=== PATIENT | male | born 1955 | race African-American/Black ===

== ENCOUNTER 2019-08-07 09:28 | Outpatient (CLI) | payer OTHER, SELFPAY ==
[2019-08-07 10:37] LABS: Basophils Percent Auto 0.5 % (0.2-1.2); Eosinophils Absolute Auto 0.2 K/mm3 (0-0.3); Eosinophils Percent Auto 2.6 % (0-4.4); Hematocrit 36.2 % (42.0-52.0); Hemoglobin 12.1 g/dL (14.0-18.0); Immature Granulocyte Absolute 0.02 K/mm3 (0.00-0.031); Immature Granulocyte Percent A 0.3 % (0-0.5); Lymphocytes Absolute Auto 1.58 K/mm3 (0.9-3.2); Lymphocytes Percent Auto 23.7 % (18.3-44.2); Mean Corpuscular HGB Conc 33.4 g/dl (32-36); Mean Corpuscular Hemoglobin 30.6 pg (26-34); Mean Corpuscular Volume 91.4 fl (80-100); Mean Platelet Volume 9.8 fl (7.4-10.4); Monocytes Absolute Auto 0.7 K/mm3 (0.1-0.6); Monocytes Percent Auto 9.8 % (2.6-8.5); Neutrophils Absolute Auto 4.2 K/mm3 (1.3-6.7); Neutrophils Percent Auto 63.1 % (45.5-73.1); Platelet Count Result 247 k/mm3 (150-375); Red Blood Count 3.96 M/mm3 (4.6-6.20); Red Cell Distribution Width 14.3 % (11.5-14.5); White Blood Count 6.7 K/mm3 (4.5-10.0)
[2019-08-07 10:52] LABS: Alanine Aminotransferase 11 U/L (4-50); Albumin Level 4.6 g/dL (3.5-5.1); Alkaline Phosphatase 88 U/L (38-126); Aspartate Amino Transferase 28 U/L (17-59); Bilirubin,Total 0.6 mg/dL (0.2-1.3); Blood Urea Nitrogen 16 mg/dL (9-20); Calcium 9.6 mg/dL (8.4-10.2); Carbon Dioxide 28 mmol/L (22-30); Chloride 106 mmol/L (98-107); Cholesterol 127 mg/dL (0-200); Estimated Glomerular Filt Rate > 60; Glucose 112 mg/dL (75-110); HDL Direct 48 mg/dL; Potassium 3.6 mmol/L (3.4-5.0); Sodium 143 mmol/L (137-145); Triglycerides 31 mg/dL (<150)
[2019-08-07 11:03] LABS: LDL Cholesterol Direct 67 mg/dL
[2019-08-07 14:03] LABS: Hemoglobin A1C 6.7 % (<5.7)
[2019-08-07 15:25] LABS: Carcinoembryonic Antigen 3.4 ng/mL (0.0-3.0)
== END 2019-08-07 09:29 | disposition home or self-care (01) ==
LOC: ANHLAB 09:36
PROVIDERS: PCP Internal Medicine; Visit Provider Nurse Practitioner
DX: C18.9 Malignant neoplasm of colon, unspecified (principal); C78.7 Secondary malignant neoplasm of liver and intrahepatic bile duct; E11.9 Type 2 diabetes mellitus without complications; I10 Essential (primary) hypertension; D64.9 Anemia, unspecified; E78.5 Hyperlipidemia, unspecified
CPT/HCPCS: 36415; 80053; 80061; 82378; 82728; 83036; 85025

== ENCOUNTER 2019-10-08 08:23 | Outpatient (CLI) | payer OTHER, SELFPAY ==
--- NOTE | ~2019-10-08 | CT_ITS ---
EXAMINATION: CT chest abdomen pelvis w con EXAM DATE: 10/08/2019 09:10 INDICATION: Colon cancer, liver metastases. TECHNIQUE: Spiral CT of the chest, abdomen and pelvis was performed following intravenous injection o f 100 mL Omnipaque 350. Axial, coronal and sagittal images were reviewed. Coronal maximum intensity pixel images of chest reviewed. The dose-length product (DLP) for this examination was 421.06 mGy-c m. The exposure was tailored according to patient size (auto mA exposure control), and iterative rec onstruction (ASIR) was used as additional dose reduction technique. Comparison is made to prior exami nation from 04/02/2019. FINDINGS: CHEST: Right-sided Chemo-Port. There is mild emphysema and mild bronchiectasis. There is no focal acu te air space disease. Previously biopsied right thyroid nodule. There is a right-sided portacatheter with tip just above no central pulmonary emboli. The cavoatrial junction. There are no pleural or pe ricardial effusions. Tracheobronchial tree is patent. There is no mediastinal, hilar or axillary lymphadenopathy. There is no pneumothorax. Heart normal in size. There is mild coronary arteria l calcification, arterial sclerosis. ABDOMEN PELVIS: There is a new homogeneous low density liver lesion in the left liver lobe medial seg ment measuring 2.0 x 2.8 cm. There is another new low density region in right liver lobe measuring 2. 5 x 1.5 cm with couple of calcifications or metallic surgical foreign bodies in the right liver lobe, may have slight volume loss. There is again a 1.1 cm flash filling hemangioma. There is a 1.3 cm rig ht adrenal gland nodule unchanged, could be an adenoma. Some subtle nodularity to the left adrenal gl and is unchanged. Pancreas, spleen are unremarkable. Gallbladder is unremarkable. No biliary obstruction. Portal and splenic veins are patent. Kidneys enhance symmetrically. There is no hydronephrosis. Again there i s a 4 mm calcification in the region of the right ureterovesicular junction, could be phlebolith give n absence of hydronephrosis. Difficult to totally exclude distal ureteral stone. Previously seen righ t proximal ureteral stone is no longer identified. The prostate is unremarkable. The bladder is unr emarkable. There is no retroperitoneal or pelvic lymphadenopathy. Patient has had right hemicolectomy, intact anastomosis, no evidence of local recurrence. The stomac h and small bowel are unremarkable. There is expected amount of colonic stool. No free intraperito cas gas. There are no osteoblastic or osteolytic lesions identified. IMPRESSION: 1. 2 new liver lesions as described above. 2. Right pelvic calcification could be phlebolith given absence of hydronephrosis. 3. Mild emphysema and bronchiectasis. Reviewed, dictated and finalized at location A. IMPRESSION: 1. 2 new liver lesions as described above. 2. Right pelvic calcification could be phlebolith given absence of hydronephro sis. 3. Mild emphysema and bronchiectasis.
[2019-10-08 09:02] LABS: Estimated Glomerular Filt Rate > 60
[2019-10-08 10:20] LABS: Basophils Percent Auto 0.5 % (0.2-1.2); Eosinophils Absolute Auto 0.1 K/mm3 (0-0.3); Eosinophils Percent Auto 1.5 % (0-4.4); Hemoglobin 12.8 g/dL (14.0-18.0); Immature Granulocyte Absolute 0.02 K/mm3 (0.00-0.031); Immature Granulocyte Percent A 0.3 % (0-0.5); Lymphocytes Absolute Auto 1.61 K/mm3 (0.9-3.2); Lymphocytes Percent Auto 20.3 % (18.3-44.2); Mean Corpuscular HGB Conc 32.8 g/dl (32-36); Mean Corpuscular Volume 94.4 fl (80-100); Mean Platelet Volume 10.3 fl (7.4-10.4); Monocytes Absolute Auto 0.7 K/mm3 (0.1-0.6); Monocytes Percent Auto 8.9 % (2.6-8.5); Neutrophils Absolute Auto 5.5 K/mm3 (1.3-6.7); Neutrophils Percent Auto 68.5 % (45.5-73.1); Platelet Count Result 273 k/mm3 (150-375); Red Blood Count 4.13 M/mm3 (4.6-6.20); Red Cell Distribution Width 13.9 % (11.5-14.5)
[2019-10-08 10:27] LABS: Alanine Aminotransferase 15 U/L (4-50); Albumin Level 4.6 g/dL (3.5-5.1); Alkaline Phosphatase 84 U/L (38-126); Aspartate Amino Transferase 29 U/L (17-59); Bilirubin,Total 0.7 mg/dL (0.2-1.3); Blood Urea Nitrogen 14 mg/dL (9-20); Calcium 9.3 mg/dL (8.4-10.2); Carbon Dioxide 32 mmol/L (22-30); Chloride 101 mmol/L (98-107); Estimated Glomerular Filt Rate > 60; Glucose 123 mg/dL (75-110); Potassium 3.8 mmol/L (3.4-5.0); Sodium 140 mmol/L (137-145)
[2019-10-08 10:57] LABS: Carcinoembryonic Antigen 3.3 ng/mL (0.0-3.0)
== END 2019-10-08 08:24 | disposition home or self-care (01) ==
PROVIDERS: PCP Internal Medicine; Visit Provider Internal Medicine Hematology & Oncology
DX: C18.9 Malignant neoplasm of colon, unspecified (principal); C78.7 Secondary malignant neoplasm of liver and intrahepatic bile duct; J43.9 Emphysema, unspecified; J47.9 Bronchiectasis, uncomplicated
CPT/HCPCS: 36415; 71260; 74177; 80053; 82378; 85025; Q9967

== ENCOUNTER 2019-10-23 08:55 | Outpatient (CLI) | payer OTHER, SELFPAY ==
--- NOTE | ~2019-10-23 | PE_ITS ---
EXAMINATION: PET skull to mid thigh DATE: 10/23/2019 11:08 INDICATION: Colon cancer metastatic to liver TECHNIQUE: Blood glucose level was 179 mg/dL. 10.255 mCi of 18-fluorodeoxyglucose (18-FDG) was admini stered i.v. Low dose computed tomography (CT) images were acquired from the base of the brain to the proximal thighs for attenuation correction and anatomic localization. Positron emission tomography (P ET) images were acquired in the same distribution beginning 68 minutes after injection. Images includ ing fused PET/CT images were reconstructed in axial, coronal, and sagittal planes. Automated exposure control technique was employed. The dose-length product was 492.54mGy-cm. COMPARISON: CT chest, abdomen and pelvis dated 04/02/2019 FINDINGS: Head/neck: There is symmetric increased activity in the oral cavity, lingual tonsils, parotid glands, submandib ular glands, laryngeal muscles and ocular muscles without CT correlate, likely physiologic. Multinodu lar goiter with enlargement of the right thyroid lobe without abnormal FDG uptake. No pathologically enlarged cervical lymphadenopathy or suspicious foci of increased FDG uptake in the visualized head o r neck. Chest: Right internal jugular central venous port catheter with distal tip at the caudal superior vena cava. No suspicious pulmonary nodules, pneumonia, pulmonary edema or other pulmonary infiltrates. No pleur al effusion. Heart size is normal. Thoracic aorta is normal in caliber. Diffuse mild synovial uptake at the bilateral glenohumeral joints, left greater than right without radiologic correlate. No pathol ogically enlarged thoracic lymphadenopathy or other abnormal FDG avid lesions in the thorax. Abdomen/pelvis/proximal thighs: Decreased FDG uptake associated with subtle poorly defined low-attenuation lesions measure approximat irma 2-3 cm in segment 4A of the liver and an approximately 1.5-2.5 cm lesion with coarse calcificatio ns in segment 6 of the liver likely related to treated metastatic disease. Physiologic renal accumula tion and excretion of FDG activity in the kidneys, bladder and along portions of ureters. The gallbla dder, pancreas, spleen and left adrenal glands are normal. Approximately 12 mm right adrenal nodule w ithout increased FDG uptake which given stability since Postoperative change of right hemicolectomy w ith ileocolic anastomosis in the mid abdomen. There is mild scattered likely physiologic uptake throu ghout the bowels without radiologic correlate. Prostatomegaly. No free intraperitoneal gas or fluid. No other abnormal foci of increased FDG uptake or pathologically enlarged lymphadenopathy in the abdo men, pelvis or proximal thighs. Musculoskeletal: Bones are unremarkable with no suspicious lytic, blastic or FDG avid bone lesions. IMPRESSION: 1. No evident FDG activity associated with a couple low-attenuation hepatic lesions consistent with t reated metastatic disease. No other evident metastatic disease. 2. Goiter. 3. Status post right hemicolectomy. Reviewed, dictated and finalized at location A. IMPRESSION: 1. No evident FDG activity associated with a couple low-attenuation hepatic les ions consistent with treated metastatic disease. No other evident metastatic di sease. 2. Goiter. 3. Status post right hemicolectomy.
[2019-10-23 09:24] LABS: Glucose Point of Care 179 (65-105)
== END 2019-10-23 08:56 | disposition home or self-care (01) ==
LOC: ANHIMG 08:57
PROVIDERS: PCP Internal Medicine; Visit Provider Internal Medicine Hematology & Oncology
DX: C18.9 Malignant neoplasm of colon, unspecified (principal); C78.7 Secondary malignant neoplasm of liver and intrahepatic bile duct; E04.9 Nontoxic goiter, unspecified; Z90.49 Acquired absence of other specified parts of digestive tract
CPT/HCPCS: 78815; A9552

== ENCOUNTER 2020-02-17 08:38 | Outpatient (CLI) | payer OTHER, SELFPAY ==
--- NOTE | ~2020-02-17 | CT_ITS ---
EXAMINATION: CT chest abdomen pelvis w con EXAM DATE: 02/17/2020 09:28 INDICATION: Colon cancer, liver metastases. TECHNIQUE: Spiral CT of the chest, abdomen and pelvis was performed following intravenous injection o f 100 mL Omnipaque 350. Axial, coronal and sagittal images were reviewed. Coronal maximum intensity pixel images of chest reviewed. The dose-length product (DLP) for this examination was 729.29 mGy-c m. The exposure was tailored according to patient size (auto mA exposure control), and iterative rec onstruction (ASIR) was used as additional dose reduction technique. Comparison is made to prior exami nation from 10/23/2019. FINDINGS: CHEST: There is a right-sided Chemo-Port. There is 2.5 cm right thyroid lobe nodule. Possible right s ubmandibular stone. No central pulmonary emboli. The lungs are clear. There are no pleural or peric ardial effusions. Tracheobronchial tree is patent. There is no mediastinal, hilar or axillary lym phadenopathy. There is no pneumothorax. Heart normal in size. ABDOMEN PELVIS: There is interval decrease in size of the previously seen left liver lobe hypodensity , now measuring 2.2 cm greatest dimension (was 2.7 on prior study). Also decrease in size of previous ly seen right liver lobe hypodensity measuring 1.9 cm (previously 2.5 cm). This is most consistent wi th treated metastatic disease. There is right adrenal 1.3 cm nodule unchanged, could be adenoma. Some mild nodularity to the left ad renal gland. Gallbladder is unremarkable. No biliary obstruction. Portal and splenic veins are richardson nt. Kidneys enhance symmetrically. There is no hydronephrosis. There is a 4 mm calcification in the region of right ureterovesicular junction, could be phlebolith given absence of hydronephrosis or ob structive nephrogram. This is unchanged compared to prior study. There is mild prostatomegaly. The b ladder is unremarkable. There is no retroperitoneal or pelvic lymphadenopathy. There is mild scatt ered arteriosclerotic disease. The stomach and small bowel are unremarkable. Status post right hemicolectomy. Expected amount of co lonic stool. No evidence of local recurrence around surgical site. No free intraperitoneal gas. T here are no osteoblastic or osteolytic lesions identified. IMPRESSION: 1. Interval decrease in size of 2 liver hypodensities, most consistent with treated metastatic disea se. 2. Other stable chronic findings. Reviewed, dictated and finalized at location A. IMPRESSION: 1. Interval decrease in size of 2 liver hypodensities, most consistent with tr eated metastatic disease. 2. Other stable chronic findings.
[2020-02-17 09:17] LABS: Estimated Glomerular Filt Rate > 60
[2020-02-17 10:47] LABS: Basophils Percent Auto 0.3 % (0.2-1.2); Eosinophils Absolute Auto 0.2 K/mm3 (0-0.3); Eosinophils Percent Auto 2.5 % (0-4.4); Hematocrit 37.5 % (42.0-52.0); Hemoglobin 12.3 g/dL (14.0-18.0); Immature Granulocyte Absolute 0.03 K/mm3 (0.00-0.031); Immature Granulocyte Percent A 0.5 % (0-0.5); Lymphocytes Absolute Auto 1.58 K/mm3 (0.9-3.2); Lymphocytes Percent Auto 24.3 % (18.3-44.2); Mean Corpuscular HGB Conc 32.8 g/dl (32-36); Mean Corpuscular Hemoglobin 31.3 pg (26-34); Mean Corpuscular Volume 95.4 fl (80-100); Mean Platelet Volume 10.1 fl (7.4-10.4); Monocytes Absolute Auto 0.6 K/mm3 (0.1-0.6); Monocytes Percent Auto 8.8 % (2.6-8.5); Neutrophils Absolute Auto 4.2 K/mm3 (1.3-6.7); Neutrophils Percent Auto 63.6 % (45.5-73.1); Platelet Count Result 271 k/mm3 (150-375); Red Blood Count 3.93 M/mm3 (4.6-6.20); Red Cell Distribution Width 12.8 % (11.5-14.5); White Blood Count 6.5 K/mm3 (4.5-10.0)
[2020-02-17 10:58] LABS: Anion Gap 7 mmol/L (8-16); Blood Urea Nitrogen 11 mg/dL (9-20); Calcium 9.5 mg/dL (8.4-10.2); Carbon Dioxide 30 mmol/L (22-30); Chloride 103 mmol/L (98-107); Estimated Glomerular Filt Rate > 60; Glucose 109 mg/dL (75-110); Potassium 3.8 mmol/L (3.4-5.0); Sodium 140 mmol/L (137-145)
[2020-02-17 11:29] LABS: Carcinoembryonic Antigen 3.7 ng/mL (0.0-3.0)
== END 2020-02-17 08:39 | disposition home or self-care (01) ==
LOC: ANHIMG 08:49
PROVIDERS: Nurse Practitioner; PCP Internal Medicine; Visit Provider Internal Medicine Hematology & Oncology
DX: C78.7 Secondary malignant neoplasm of liver and intrahepatic bile duct (principal); C18.9 Malignant neoplasm of colon, unspecified
CPT/HCPCS: 36415; 71260; 74177; 80048; 82378; 83036; 85025; Q9967

== ENCOUNTER 2020-08-05 08:01 | Outpatient (CLI) | payer OTHER, SELFPAY ==
--- NOTE | ~2020-08-05 | CT_ITS ---
EXAMINATION: CT chest abdomen pelvis w con EXAM DATE: 08/05/2020 08:54 INDICATION: Metastatic colon cancer to liver. TECHNIQUE: Spiral CT of the chest, abdomen and pelvis was performed following intravenous injection o f 100 mL Omnipaque 350. Axial, coronal and sagittal images were reviewed. Coronal maximum intensity pixel images of chest reviewed. The dose-length product (DLP) for this examination was 911.19 mGy-c m. The exposure was tailored according to patient size (auto mA exposure control), and iterative rec onstruction (ASIR) was used as additional dose reduction technique. Comparison is made to prior exami nation from 02/17/2020. FINDINGS: Right submandibular sialolithiasis. Left submandibular gland not identified. Right thyroid lobe nodule or nodules, region measuring about 2 cm. CHEST: There is a right-sided portacatheter. No central pulmonary emboli. There are no pleural or p ericardial effusions. Tracheobronchial tree is patent. There is no mediastinal, hilar or axillary lymphadenopathy. There is no pneumothorax. Heart normal in size. There is mild coronary arteri al calcification, arterial sclerosis. ABDOMEN PELVIS: Slight interval decrease in size of left liver lobe medial segmental hypodense lesion measuring 2.1 x 1.7 cm today versus 2.6 x 1.8 cm in February. Similar slight interval decrease in s ize of right liver lobe hypodensity with some calcifications. Probably response to treatment. No new liver lesions identified. There is a 1.3 cm right adrenal gland lesion unchanged, could be adenoma gi juan stability. Slight nodularity to the left adrenal gland. The pancreas, spleen are unremarkable. G allbladder is unremarkable. No biliary obstruction. Portal and splenic veins are patent. Kidneys enhance symmetrically. There is no hydronephrosis. Ag ain there is 4 mm calcification in region of the right UVJ, but could be phlebolith given absence of hydronephrosis. This is unchanged compared to prior study. There is mild prostatomegaly. Some diffus e bladder wall thickening, could indicate chronic cystitis. Acute cystitis not excludable. There is no retroperitoneal or pelvic lymphadenopathy. Small bilateral inguinal and umbilical fat-containing hernias. Status post right hemicolectomy. Anastomosis site unremarkable. The stomach and small bowel are unre markable. There is expected amount of colonic stool. No free intraperitoneal gas. There are no o steoblastic or osteolytic lesions identified. IMPRESSION: 1. Modest interval decrease in size of liver metastatic disease. 2. Stable right adrenal lesion, could be adenoma. 3. Other surgical, chronic findings also unchanged. Reviewed, dictated and finalized at location A. H OPENER HAND
[2020-08-05 08:42] LABS: Estimated Glomerular Filt Rate > 60
[2020-08-05 09:16] LABS: Hemoglobin A1C 7.1 % (<5.7)
== END 2020-08-05 08:55 | disposition home or self-care (01) ==
PROVIDERS: PCP Nurse Practitioner; Visit Provider Internal Medicine Hematology & Oncology
DX: E11.9 Type 2 diabetes mellitus without complications (principal); Z79.4 Long term (current) use of insulin; C18.9 Malignant neoplasm of colon, unspecified; C78.7 Secondary malignant neoplasm of liver and intrahepatic bile duct; R91.8 Other nonspecific abnormal finding of lung field
CPT/HCPCS: 71260; 74177; 83036; Q9967

== ENCOUNTER 2020-08-12 08:00 | Outpatient (CLI) | payer OTHER, SELFPAY | END 2020-08-12 08:01 | disposition home or self-care (01) | LOC: ANHCOVIDVC 08:00 | PROVIDERS: PCP Nurse Practitioner | DX: Z23 Encounter for immunization (principal) | CPT/HCPCS: 0001A; 91300 ==

== ENCOUNTER 2020-09-02 08:01 | Outpatient (CLI) | payer OTHER, SELFPAY | END 2020-09-02 08:02 | disposition home or self-care (01) | LOC: ANHCOVIDVC 08:01 | PROVIDERS: PCP Nurse Practitioner | DX: Z23 Encounter for immunization (principal) | CPT/HCPCS: 0002A; 91300 ==

== ENCOUNTER 2020-11-29 08:21 | Outpatient (CLI) | payer OTHER, SELFPAY ==
--- NOTE | ~2020-11-29 | CT_ITS ---
EXAMINATION: CT chest abdomen pelvis w con DATE: 11/29/2020 09:13 INDICATION: Metastatic colon cancer TECHNIQUE: Transaxial computed tomographic images of the chest, abdomen, and pelvis were obtained aft er the administration of 100 cc of Omnipaque 350 intravenous contrast. The dose-length product (DLP) was 555.06 mGy-cm. Automated exposure control and iterative reconstruction technique were employed. COMPARISON: 08/05/2020 FINDINGS: CHEST CT: A right internal jugular Port-A-Cath ends with its tip in the distal superior vena cava. Again noted are multiple right thyroid nodules or nodule spanning 2.5 cm. There is a stable 2 mm nodule of the ri ght upper lobe, most consistent with old granulomatous disease. The lungs are free of acute opacities . There is no pleural effusion or pneumothorax. Mild dependent atelectasis is noted. No pathologicall y enlarged thoracic lymph nodes are identified. The heart size is normal. Calcified coronary artery a therosclerosis is noted. ABDOMEN/PELVIS CT: There are unchanged calcifications in liver segment likely related to treated metastatic disease. A 1.9 cm mass in liver segment for a demonstrates slight decrease in size, previously measuring 2.1 c m. A stable peripheral hypervascular lesion in liver segment is consistent with a flash filling he mangioma or focal nodular hyperplasia. The spleen, pancreas, left adrenal gland, and gallbladder are normal. A stable 12 mm right adrenal mass which did not demonstrate FDG uptake on prior PET/CT likely represents an adenoma. There are changes of right hemicolectomy. The kidneys are unremarkable. No pa thologically enlarged abdominal or pelvic lymph nodes are identified. There is no free intraperitonea l gas or evidence of bowel obstruction. There is a 3 mm stone in the urinary bladder near the right u reterovesicular junction. There is mild lumbar spondylosis. IMPRESSION: 1. Slight decrease in size of a left hepatic lobe metastasis and stable right hepatic lobe metastasis . No new metastatic disease. Reviewed, dictated and finalized at location B. IMPRESSION: 1. Slight decrease in size of a left hepatic lobe metastasis and stable right h epatic lobe metastasis. No new metastatic disease.
[2020-11-29 08:58] LABS: Basophils Percent Auto 0.5 % (0.2-1.2); Eosinophils Absolute Auto 0.1 K/mm3 (0-0.3); Eosinophils Percent Auto 2.1 % (0-4.4); Hematocrit 37.6 % (42.0-52.0); Hemoglobin 12.6 g/dL (14.0-18.0); Immature Granulocyte Absolute 0.01 K/mm3 (0.00-0.031); Immature Granulocyte Percent A 0.2 % (0-0.5); Lymphocytes Absolute Auto 1.67 K/mm3 (0.9-3.2); Lymphocytes Percent Auto 26.5 % (18.3-44.2); Mean Corpuscular HGB Conc 33.5 g/dl (32-36); Mean Corpuscular Hemoglobin 30.8 pg (26-34); Mean Corpuscular Volume 91.9 fl (80-100); Mean Platelet Volume 10.1 fl (7.4-10.4); Monocytes Absolute Auto 0.6 K/mm3 (0.1-0.6); Neutrophils Absolute Auto 3.8 K/mm3 (1.3-6.7); Neutrophils Percent Auto 60.7 % (45.5-73.1); Platelet Count Result 227 k/mm3 (150-375); Red Blood Count 4.09 M/mm3 (4.6-6.20); Red Cell Distribution Width 12.7 % (11.5-14.5); White Blood Count 6.3 K/mm3 (4.5-10.0)
[2020-11-29 09:12] LABS: Alanine Aminotransferase 11 U/L (4-50); Albumin Level 4.6 g/dL (3.5-5.1); Alkaline Phosphatase 66 U/L (38-126); Anion Gap 9 mmol/L (8-16); Aspartate Amino Transferase 28 U/L (17-59); Bilirubin,Total 0.4 mg/dL (0.2-1.3); Blood Urea Nitrogen 14 mg/dL (9-20); Calcium 9.6 mg/dL (8.4-10.2); Carbon Dioxide 28 mmol/L (22-30); Chloride 107 mmol/L (98-107); Cholesterol 133 mg/dL (0-200); Estimated Glomerular Filt Rate > 60; Glucose 97 mg/dL (75-110); HDL Direct 41 mg/dL; Potassium 3.2 mmol/L (3.4-5.0); Sodium 144 mmol/L (137-145); Triglycerides 39 mg/dL (<150)
[2020-11-29 09:15] LABS: Platelet Estimate Adequate (Adequate)
[2020-11-29 09:16] LABS: Atypical Lymphocytes Present
[2020-11-29 09:24] LABS: LDL Cholesterol Direct 61 mg/dL
[2020-11-29 09:41] LABS: Prostate Specific Antigen 0.7 ng/mL (< OR = 4.0)
[2020-11-30 07:47] LABS: Estimated Glomerular Filt Rate > 60
== END 2020-11-29 08:22 | disposition home or self-care (01) ==
PROVIDERS: PCP Nurse Practitioner; Referring Provider Nurse Practitioner; Visit Provider Internal Medicine Hematology & Oncology
DX: E11.9 Type 2 diabetes mellitus without complications (principal); Z79.4 Long term (current) use of insulin; Z12.5 Encounter for screening for malignant neoplasm of prostate; C18.9 Malignant neoplasm of colon, unspecified
CPT/HCPCS: 36415; 71260; 74177; 80053; 80061; 84153; 85025; G0103; Q9967

== ENCOUNTER 2021-03-18 08:19 | Outpatient (CLI) | payer OTHER, SELFPAY ==
--- NOTE | ~2021-03-18 | CT_ITS ---
EXAMINATION: CT chest abdomen pelvis w con DATE: 03/18/2021 10:02 INDICATION: Colon cancer metastatic to liver. TECHNIQUE: Computed tomography (CT) of the chest, abdomen, and pelvis was performed with 100 mL Omnip aque 350 intravenous contrast. Automated exposure control and iterative reconstruction technique were employed. The dose-length product was 349.35 mGy-cm. COMPARISON: CT chest, abdomen, and pelvis 11/29/2020, thyroid ultrasound 05/24/2010, CT abdomen and pe lvis 05/31/2018 FINDINGS: CHEST CT: There is no pneumonia or pleural effusion. There is a 2.6 cm nodule in right thyroid lobe, stable fro m 05/24/2010 and likely benign. There is a right internal jugular port with tip at superior cavoatria l junction. The heart size is normal. There are coronary artery calcifications. No pericardial effusi on. There are no pathologically enlarged lymph nodes. There is mild thoracic spondylosis. ABDOMEN/PELVIS CT: There are surgical changes of right hepatic lobe, likely focal resection of a metastasis. There is a chronic 11 mm hyperdense mass in right hepatic lobe, likely benign. There is a 2.2 x 1.5 cm mass of t he junction of segments 4A and 8 of the liver, stable from 11/29/20, consistent with metastatic diseas e. The gallbladder, spleen, pancreas, and left adrenal gland are normal. There is a chronic 13 mm mas s in right adrenal gland, likely an adenoma. The kidneys are normal. There is prominent fat in the in guinal canals that may be hernias. The prostate is mildly enlarged. A 4 mm calcification at the poste rior aspect of the bladder near the right ureterovesicular junction has been present since 05/23/2018 , likely a phlebolith. There are changes of right hemicolectomy. There are no pathologically enlarged lymph nodes. There is no free intraperitoneal fluid. There is mild lumbar spondylosis. IMPRESSION: 1. Stable liver mass, consistent with metastatic disease. Reviewed, dictated and finalized at location A.
[2021-03-18 09:53] LABS: Estimated Glomerular Filt Rate > 60
[2021-03-18 13:42] LABS: Hemoglobin A1C 7.3 % (<5.7)
== END 2021-03-18 08:20 | disposition home or self-care (01) ==
PROVIDERS: PCP Nurse Practitioner; Visit Provider Internal Medicine Hematology & Oncology
DX: E11.9 Type 2 diabetes mellitus without complications (principal); Z79.4 Long term (current) use of insulin; C18.9 Malignant neoplasm of colon, unspecified; C78.7 Secondary malignant neoplasm of liver and intrahepatic bile duct
CPT/HCPCS: 36415; 71260; 74177; 83036; Q9967

== ENCOUNTER 2021-06-30 09:20 | Outpatient (CLI) | payer OTHER, SELFPAY ==
--- NOTE | ~2021-06-30 | CT_ITS ---
EXAMINATION: CT abdomen pelvis w con EXAM DATE: 06/30/2021 10:00 INDICATION: colon cancer metastasized to liver. TECHNIQUE: Spiral CT of the abdomen and pelvis was performed following intravenous injection of 100 m L Omnipaque 350. Axial, coronal and sagittal images of the abdomen and pelvis were reviewed. The do se-length product (DLP) for this examination was 502.16 mGy-cm. The exposure was tailored according to patient size (auto mA exposure control), and iterative reconstruction (ASIR) was used as additiona l dose reduction technique. Comparison is made to prior examination from 03/18/2021. FINDINGS: There is left liver dome hypodensity measuring 2 cm unchanged, smaller lesion in the right liver lobe inferiorly with calcification also stable.. Spleen, pancreas and spleen are unremarkable. There is a nodule in each adrenal gland, measuring 1.1 cm on the left unchanged. Gallbladder is unre markable. No biliary obstruction. Portal and splenic veins are patent. Kidneys enhance symmetrical ly. There is no hydronephrosis. Chronic 4 mm calcification in region of right UVJ, probably phlebol ith given no change or hydronephrosis. Mild prostatomegaly. The bladder is unremarkable. There is n o retroperitoneal or pelvic lymphadenopathy. The stomach and small bowel are unremarkable. Surgical changes from right hemicolectomy. There is exp ected amount of colonic stool. No free intraperitoneal gas. The heart is normal in size. There a re no pericardial or pleural effusions. The lung bases are unremarkable. There are no osteoblastic or osteolytic lesions identified. IMPRESSION: 1. Stable, treated liver metastases. 2. Stable adrenal gland lesions could be adenomas. 3. Right hemicolectomy. Reviewed, dictated and finalized at location A. [employer] PRODUCT DEVELOPMENT MANAGER
[2021-06-30 09:46] LABS: Estimated Glomerular Filt Rate > 60
== END 2021-06-30 09:21 | disposition home or self-care (01) ==
LOC: ANHIMG 09:24
PROVIDERS: PCP Internal Medicine; Visit Provider Internal Medicine Hematology & Oncology
DX: C18.9 Malignant neoplasm of colon, unspecified (principal); C78.7 Secondary malignant neoplasm of liver and intrahepatic bile duct
CPT/HCPCS: 74177; Q9967

== ENCOUNTER 2021-07-14 10:09 | Outpatient (CLI) | payer OTHER, SELFPAY ==
[2021-07-14 11:12] LABS: Hemoglobin A1C 6.8 % (<5.7)
== END 2021-07-14 10:10 | disposition home or self-care (01) ==
LOC: ANHLAB 10:12
PROVIDERS: PCP Internal Medicine; Visit Provider Nurse Practitioner
DX: E11.9 Type 2 diabetes mellitus without complications (principal); Z79.4 Long term (current) use of insulin
CPT/HCPCS: 36415; 83036

== ENCOUNTER 2021-11-08 09:56 | Outpatient (CLI) | payer OTHER, SELFPAY ==
--- NOTE | ~2021-11-08 | CT_ITS ---
EXAMINATION: CT abdomen pelvis wo con DATE: 11/08/2021 10:21 INDICATION: Metastatic colon cancer restaging TECHNIQUE: Computed tomography (CT) of the abdomen and pelvis was performed without intravenous contr ast. Automated exposure control and iterative reconstruction technique were employed. Exam dose: 202 .76 mGy-cm total exam DLP. COMPARISON: 06/30/2021 CT abdomen pelvis with IV contrast material FINDINGS: The lung bases are clear of infiltrate or consolidation or mass lesion. Normal heart size. No pericardial or pleural effusion. Within the limits of this noncontrast examination (due to current severe shortage of iodinated contra st material), the anterior hepatic dome mass and partially calcified posterior right hepatic mass. Re latively stable since 06/30/2021, previously attributed to stable treated liver metastases. No apparen t interval hepatic space-occupying mass lesion is detected. Normal splenic size. The gallbladder is present. No bile duct or pancreatic duct dilatation. No pancreatic mass lesion or calcification. Stable small right adrenal nodule. There is an approximately 4.5 mm calcification near the right ureterovesical junction, which is been present since 1999 8T, without hydroureteronephrosis. This may be within a ureterocele. Phlebolith talavera s been mentioned in the differential diagnosis. There is moderate thickening of the urinary bladder wall. No other urinary tract calculus or hydroureteronephrosis is noted. No renal mass lesion is evident on either side. Normal caliber of the abdominal aorta. No intraperitoneal or retroperitoneal or pelvic mass lesion or adenopathy or ascites is noted otherwise. Status post right partial colectomy for history of colon cancer. No bowel obstruction or intraperiton eal free air. No suspicious osteolytic or osteoblastic lesions are noted. IMPRESSION: Status post right partial colectomy for colon cancer with 2 stable treated liver metasta ses; no interval abnormal finding is noted since 06/30/2021. Reviewed, dictated and finalized at [facility]. Reviewed, dictated and finalized at location A. IMPRESSION: Status post right partial colectomy for colon cancer with 2 stable treated liver metastases; no interval abnormal finding is noted since 2.
== END 2021-11-08 09:57 | disposition home or self-care (01) ==
PROVIDERS: PCP Internal Medicine; Visit Provider Internal Medicine Hematology & Oncology
DX: C18.9 Malignant neoplasm of colon, unspecified (principal); C78.7 Secondary malignant neoplasm of liver and intrahepatic bile duct
CPT/HCPCS: 74176

== ENCOUNTER 2021-12-16 06:57 | Outpatient (CLI) | payer OTHER, SELFPAY ==
[2021-12-16 07:46] LABS: Basophils Percent Auto 0.5 % (0.2-1.2); Eosinophils Absolute Auto 0.4 K/mm3 (0-0.3); Eosinophils Percent Auto 5.9 % (0-4.4); Hematocrit 38.6 % (42.0-52.0); Hemoglobin 12.9 g/dL (14.0-18.0); Immature Granulocyte Absolute 0.01 K/mm3 (0.00-0.031); Immature Granulocyte Percent A 0.2 % (0-0.5); Lymphocytes Absolute Auto 1.45 K/mm3 (0.9-3.2); Lymphocytes Percent Auto 22.7 % (18.3-44.2); Mean Corpuscular HGB Conc 33.4 g/dl (32-36); Mean Corpuscular Hemoglobin 31.2 pg (26-34); Mean Corpuscular Volume 93.2 fl (80-100); Monocytes Absolute Auto 0.6 K/mm3 (0.1-0.6); Monocytes Percent Auto 9.5 % (2.6-8.5); Neutrophils Absolute Auto 3.9 K/mm3 (1.3-6.7); Neutrophils Percent Auto 61.2 % (45.5-73.1); Platelet Count Result 247 k/mm3 (150-375); Red Blood Count 4.14 M/mm3 (4.6-6.20); Red Cell Distribution Width 12.9 % (11.5-14.5); White Blood Count 6.4 K/mm3 (4.5-10.0)
[2021-12-16 13:01] LABS: Alanine Aminotransferase 12 U/L (6-50); Albumin Level 4.5 g/dL (3.5-5.1); Alkaline Phosphatase 64 U/L (38-126); Anion Gap 9 mmol/L (8-16); Aspartate Amino Transferase 26 U/L (17-59); Bilirubin,Total 0.6 mg/dL (0.2-1.3); Blood Urea Nitrogen 12 mg/dL (9-20); Calcium 9.1 mg/dL (8.4-10.2); Carbon Dioxide 30 mmol/L (22-30); Chloride 104 mmol/L (98-107); Cholesterol 146 mg/dL (0-200); Estimated Glomerular Filt Rate > 60; Glucose 126 mg/dL (65-110); HDL Direct 42 mg/dL; Potassium 3.9 mmol/L (3.4-5.0); Sodium 143 mmol/L (137-145); Triglycerides 40 mg/dL (<150)
[2021-12-16 13:13] LABS: LDL Cholesterol Direct 64 mg/dL
== END 2021-12-16 06:58 | disposition home or self-care (01) ==
LOC: ANHLAB 06:58
PROVIDERS: PCP Internal Medicine; Visit Provider Nurse Practitioner
DX: D50.9 Iron deficiency anemia, unspecified (principal); E11.9 Type 2 diabetes mellitus without complications; Z79.4 Long term (current) use of insulin; Z12.5 Encounter for screening for malignant neoplasm of prostate; E78.2 Mixed hyperlipidemia
CPT/HCPCS: 36415; 80053; 80061; 83036; 84153; 85025; G0103

== ENCOUNTER 2022-04-20 12:36 | Outpatient (CLI) | payer OTHER, SELFPAY ==
--- NOTE | ~2022-04-20 | CT_ITS ---
EXAMINATION: CT abdomen pelvis w con DATE: 04/20/2022 13:21 INDICATION: Restaging of metastatic colon cancer TECHNIQUE: Computed tomography (CT) of the abdomen and pelvis was performed with 100 CC Omnipaque 350 intravenous contrast. Automated exposure control and iterative reconstruction technique were employe d. Exam dose: 392.17 mGy-cm total exam DLP. COMPARISON: 11/08/[address] abdomen pelvis 06/30/2021 CT abdomen pelvis with IV contrast material FINDINGS: The lung bases are clear of infiltrate or consolidation or pulmonary mass lesion. Normal he art size. No pericardial or pleural effusion. There are 2 stable hepatic lesions since 06/30/2021. No interval new or enlarging hepatic mass lesion. The gallbladder is present. No pericholecystic fluid or fat stranding or gallbladder wall thickening. No bile duct or pancreatic duct dilatation. No pancreatic mass lesion or calcification. Normal splen ic size. The adrenal glands are stable in appearance since 06/30/2021. Chronic 4 mm calcification in the region of the right ureterovesical junction. Is unchanged in appear ance since 06/30/2021 this may be a calcified phlebolith. This might be a ureterovesical junction or u reteral calculus without associated hydronephrosis. No renal mass lesion or urinary tract calculus or hydroureteronephrosis is noted otherwise. There is moderate diffuse thickening of the urinary bladder wall, stable since 06/30/2021, likely due to prostate enlargement. Normal caliber of the abdominal aorta. No intraperitoneal or retroperitoneal or pelvic mass lesion or adenopathy or ascites is detected. Status post right colectomy. No bowel obstruction or intraperitoneal free air. No suspicious osteolytic or osteoblastic lesions. IMPRESSION: Status post right colectomy for colon cancer; no recurrent mass or new metastatic diseas e or significant change since 06/30/2021 is detected Reviewed, dictated and finalized at [facility]. Reviewed, dictated and finalized at location B. NING SUPPORT SERVICES DIRECTOR IMPRESSION: Status post right colectomy for colon cancer; no recurrent mass or new metastatic disease or significant change since 06/30/2021 is detected
[2022-04-20 13:19] LABS: Estimated Glomerular Filt Rate > 60
== END 2022-04-20 12:37 | disposition home or self-care (01) ==
PROVIDERS: PCP Internal Medicine; Visit Provider Internal Medicine Hematology & Oncology
DX: C18.9 Malignant neoplasm of colon, unspecified (principal); C78.7 Secondary malignant neoplasm of liver and intrahepatic bile duct
CPT/HCPCS: 36592; 74177; 80053; 82378; 85025; Q9967

== ENCOUNTER 2022-06-15 10:21 | Outpatient (CLI) | payer OTHER, SELFPAY ==
[2022-06-15 11:26] LABS: Hemoglobin A1C 6.7 % (<5.7)
== END 2022-06-15 10:22 | disposition home or self-care (01) ==
LOC: ANHLAB 10:23
PROVIDERS: PCP Internal Medicine; Visit Provider Nurse Practitioner
DX: E11.9 Type 2 diabetes mellitus without complications (principal); Z79.4 Long term (current) use of insulin
CPT/HCPCS: 36415; 83036

== ENCOUNTER 2022-07-06 08:24 | Outpatient (CLI) | payer OTHER, SELFPAY ==
[2022-07-11 17:41] LABS: Testosterone Free 82.2 pg/mL (35.0-155.0); Testosterone Total 489 ng/dL (250-1100)
== END 2022-07-06 08:25 | disposition home or self-care (01) ==
LOC: ANHGOSHLAB 08:26
PROVIDERS: PCP Internal Medicine; Visit Provider Clinical Nurse Specialist
DX: N52.9 Male erectile dysfunction, unspecified (principal)
CPT/HCPCS: 36415; 84402; 84403

== ENCOUNTER 2022-08-03 08:02 | Outpatient (CLI) | payer OTHER, SELFPAY ==
--- NOTE | ~2022-08-03 | CT_ITS ---
EXAMINATION: CT abdomen pelvis w con DATE: 08/03/2022 08:25 INDICATION: Colon cancer TECHNIQUE: Computed tomography (CT) of the abdomen and pelvis was performed with 100 cc Omnipaque 350 intravenous contrast. The dose-length product was 242.91 mGy-cm. Automated exposure control and iter ative reconstruction technique were employed. COMPARISON: Comparison to multiple prior studies sequentially, with oldest reviewed study dated 06/30. FINDINGS: Lung bases are unremarkable. Heart size normal. No significant pleural or pericardial effus ion. Fatty infiltration of the liver. There is a hypervascular lesion in the right hepatic lobe, imag e 50, measuring 1.6 cm which appears new or slightly more prominent than on prior study. There is a h ypodense lesion of the left hepatic lobe anteriorly which appears stable, possibly treated metastases . This lesion measures 1.8 x 1.3 cm. There is a subtle hypodense lesion right hepatic lobe posteriorl y with associated calcifications and contour irregularity along the margin of the liver, most likely treated metastases.. The spleen, pancreas, are unremarkable. There is slightly increased size of righ t adrenal nodule measuring 1.5 cm compared with 1.[address] dated 06/30/2021. Small left adrenal nodu le is stable. No significant vascular abnormality. Status post right colectomy. No free air or free f luid. No lymphadenopathy. Nonobstructive bowel gas pattern. Mild lumbar spondylosis. No focal lytic o r blastic lesions are identified. IMPRESSION: 1. Subtle hypervascular lesion present right hepatic lobe, posterior segment which may be new or enla rging area of metastases measuring up to 1.6 cm, image 50. There are additional areas of metastatic d isease in the liver which are stable. 2: Subtle enlargement of right adrenal nodule. Metastases not excluded. Consider correlation with MR I without and with contrast. Reviewed, dictated and finalized at location L. SCAPE SPECIALIST IMPRESSION: 1. Subtle hypervascular lesion present right hepatic lobe, posterior segment wh ich may be new or enlarging area of metastases measuring up to 1.6 cm, image 50 . There are additional areas of metastatic disease in the liver which are stabl e. 2: Subtle enlargement of right adrenal nodule. Metastases not excluded. Consid er correlation with MRI without and with contrast.
[2022-08-03 08:22] LABS: Estimated Glomerular Filt Rate > 60
== END 2022-08-03 08:03 | disposition home or self-care (01) ==
LOC: ANHIMG 08:04
PROVIDERS: PCP Internal Medicine; Visit Provider Internal Medicine Hematology & Oncology
DX: C18.9 Malignant neoplasm of colon, unspecified (principal); C78.7 Secondary malignant neoplasm of liver and intrahepatic bile duct; E27.8 Other specified disorders of adrenal gland
CPT/HCPCS: 74177; Q9967

== ENCOUNTER 2022-08-22 08:06 | Outpatient (CLI) | payer OTHER, SELFPAY ==
--- NOTE | ~2022-08-22 | PE_ITS ---
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 8.627 mCi of 18-fluorodeoxyglucose (18-FDG) was adminis tered i.v. Low dose computed tomography (CT) images were acquired from the base of the brain to the p roximal thighs for attenuation correction and anatomic localization. Positron emission tomography (PE T) images were acquired in the same distribution beginning 55 minutes after injection. Images includi ng fused PET/CT images were reconstructed in axial, coronal, and sagittal planes. Automated exposure control technique was employed. The dose-length product was 522.70mGy-cm. COMPARISON: CT abdomen pelvis dated 08/03/2022 and PET/CT dated 10/23/2019 FINDINGS: Head/neck: There is symmetric increased activity in the oral cavity, laryngeal muscles and ocular muscles withou t CT correlate, likely physiologic. There is uptake at the right submandibular gland. Surgical clips at the head of the likely resected left submandibular gland. Mild retropharyngeal uptake along the le ft longus capitis muscle without radiologic correlate with symmetric appearance on CT imaging which i s likely physiologic. No pathologically enlarged cervical lymphadenopathy or suspicious foci of incre ased FDG uptake in the visualized head or neck. Chest: Right internal jugular central venous port catheter with distal tip at the superior cavoatrial juncti on lungs are clear with no pneumonia, pulmonary edema or other pulmonary infiltrates. No pleural effu jori. Heart size is normal. Atherosclerotic coronary artery calcific lesion. No pericardial effusion. Goiter without increased FDG uptake and with mild intrathoracic extension. No pathologically enlarge d or FDG avid thoracic lymphadenopathy. Abdomen/pelvis/proximal thighs: Physiologic renal accumulation and excretion of FDG activity in the kidneys, bladder and along portio ns of ureters. Again seen are postoperative changes with a few surgical clips along the posterior rig ht hepatic lobe. Normal degree and heterogenous pattern of increased uptake throughout the liver with out radiologic correlate or dominant FDG avid lesion. No abnormal increased or decreased FDG uptake a ssociated with either the hypodense lesion in segment 4A of the liver or the subtle hyperenhancing le jori in segment 6 of the liver which can be seen with contrast enhanced CT dated 02/17/2020. No eviden t FDG uptake associated with a chronic 1.5 cm right adrenal nodule most likely an adenoma. The gallbl adder, pancreas, spleen and left adrenal gland are normal. Postoperative change of prior right hemico lectomy with ileocolic anastomosis in the right abdomen. Moderate focal uptake at the anus and mild u ptake scattered throughout the remainder of the bowels without radiologic correlate, also likely phys iologic. Prostatomegaly. No other abnormal foci of increased FDG uptake or pathologically enlarged ly mphadenopathy in the abdomen, pelvis or proximal thighs. Musculoskeletal: No suspicious lytic, blastic or FDG avid bone lesions. IMPRESSION: 1. No FDG uptake to suggest metastatic disease associated with a low-attenuation lesion in segment 4A of the liver with the site of an enhancing lesion in segment 6, both of which are without significan t interval change in contrast enhanced CT studies dating back to 02/17/2020. No other lesions suspicio us for metastatic disease in the neck, chest, abdomen or pelvis. 2. Status post right hemicolectomy for reported colon cancer. 3. No abnormal FDG uptake associated with a chronic 1.5 cm right adrenal nodule most likely an adenom a. 4. Goiter. Reviewed, dictated and finalized at location A. IMPRESSION: 1. No FDG uptake to sugges
[2022-08-22 08:30] LABS: Glucose Point of Care 120 mg/dl (65-105)
== END 2022-08-22 08:07 | disposition home or self-care (01) ==
PROVIDERS: PCP Internal Medicine; Visit Provider Internal Medicine Hematology & Oncology
DX: C18.9 Malignant neoplasm of colon, unspecified (principal); C78.7 Secondary malignant neoplasm of liver and intrahepatic bile duct; E04.9 Nontoxic goiter, unspecified
CPT/HCPCS: 78815; A9552

== ENCOUNTER 2022-08-24 07:35 | Outpatient (CLI) | payer OTHER, SELFPAY ==
--- NOTE | ~2022-08-24 | MR_ITS ---
EXAMINATION: MR abdomen wo/w con INDICATION: Liver lesion, history of metastatic colon cancer TECHNIQUE: Coronal SSFSE ARC, WATER:coronal LAVA-FLEX, Coronal 2D FIESTA FatSat, Axial SSFSE BH ARC, Axial 3D DualEcho BH, Axial SSFSE-IR, Axial DWI b=500, Axial 2D FIESTA FatSat, pre and dynamic postco ntrast Axial LAVA ARC, postcontrast Coronal In and Opposed phase LAVA FLEX COMPARISON: PET/CT, 08/22/2022; CTs dated 08/03/2022, 04/20/2022, 03/18/2021, and 05/31/2018 CONTRAST: Multihance, 13 cc FINDINGS: Respiratory motion artifact mildly limits dynamic postcontrast sequences. There is a 1.3 cm mildly T1 hypointense, mildly T2 hyperintense lesion in liver segment which demonstrates gradual enhancement on dynamic postcontrast sequences with persistent enhancement in the delayed phase. Overa ll enhancement characteristics and size are not significantly changed when compared to multiple prior examinations. There is a nonenhancing treated metastasis in liver segment . No new areas of abnorm al enhancement are identified. The spleen, pancreas, gallbladder, and left adrenal gland are normal. A 1.5 cm nodule of the right adrenal gland demonstrates loss of signal intensity on opposed phase tatiana ging, consistent with an adenoma. The kidneys are unremarkable. Changes of right hemicolectomy are no fernandez. There are no pathologically enlarged abdominal lymph nodes. No dilated loops of bowel are identi fied. A large volume of colonic stool is present. IMPRESSION: 1. Stable, chronic lesion of the right hepatic lobe, likely hemangioma. Reviewed, dictated and finalized at location L.
== END 2022-08-24 07:36 | disposition home or self-care (01) ==
PROVIDERS: PCP Internal Medicine; Visit Provider Internal Medicine Hematology & Oncology
DX: K76.9 Liver disease, unspecified (principal)
CPT/HCPCS: 74183; A9577

== ENCOUNTER 2023-04-24 09:29 | Outpatient (CLI) | payer MEDICARE, MEDICAID, SELFPAY ==
--- NOTE | ~2023-04-24 | CT_ITS ---
EXAMINATION: CT abdomen pelvis w con DATE: 04/24/2023 09:58 INDICATION: Colon cancer metastatic to liver. TECHNIQUE: Computed tomography (CT) of the abdomen and pelvis was performed with 100 mL Omnipaque 350 intravenous contrast. Automated exposure control and iterative reconstruction technique were employe d. The dose-length product was 222.87 mGy-cm. COMPARISON: CT abdomen and pelvis 08/03/2022, 03/18/21, PET/CT 10/23/19 FINDINGS: The visualized portions of the lung bases demonstrate mild atelectasis. A calcified left josef ng nodule is consistent with old granulomatous disease. No pleural effusion. The heart size is normal . No pericardial effusion. There is a 16 x 11 mm mass at the junction of segments VIII and FARHANA that p reviously measured 17 x 12 mm. There is a 13 mm hyperenhancing mass in right hepatic lobe, stable fro m 03/18/21, likely a hemangioma or focal nodular hyperplasia. There are dystrophic calcifications in right hepatic lobe, consistent with treated metastatic disease. The spleen, pancreas, gallbladder, an d left adrenal gland are normal. There is a 13 mm mass in right adrenal gland measuring soft tissue a ttenuation, stable from 03/18/21, likely an adenoma. The kidneys are normal. There is a 5 mm stone at right ureterovesicular junction. There are changes of right hemicolectomy. There are no dilated loop s of bowel. There are no pathologically enlarged lymph nodes. There is no free intraperitoneal fluid. There is mild lumbar spondylosis. IMPRESSION: 1. Stable liver mass, consistent with treated metastatic disease. 2. Chronic 5 mm stone at right ureterovesicular junction. No hydronephrosis. Reviewed, dictated and finalized at location E. ICAL ENGRAVER
[2023-04-24 09:53] LABS: Estimated Glomerular Filt Rate > 60
== END 2023-04-24 09:30 | disposition home or self-care (01) ==
LOC: ANHIMG 09:32
PROVIDERS: PCP Internal Medicine; Visit Provider Internal Medicine Hematology & Oncology
DX: C18.9 Malignant neoplasm of colon, unspecified (principal); C78.7 Secondary malignant neoplasm of liver and intrahepatic bile duct; N20.1 Calculus of ureter
CPT/HCPCS: 74177; Q9967

== ENCOUNTER 2023-07-30 12:46 | Outpatient (CLI) | payer MEDICARE, MEDICAID, SELFPAY ==
--- NOTE | ~2023-07-30 | CT_ITS ---
EXAMINATION: CT abdomen pelvis w con INDICATION: Colon cancer metastasized to the liver TECHNIQUE: Computed tomographic images of the abdomen and pelvis were obtained after the administrati on of 100 cc of Omnipaque 350 intravenous contrast. The dose-length product (DLP) was 227.79 mGy-cm. Automated exposure control and iterative reconstruction technique were employed. COMPARISON: 04/24/2023 FINDINGS: The lung bases are clear. The heart size is normal. There is a 15 mm x 10 mm hypoattenuatin g mass at the junction of liver segments VIII and Dao which is not significantly changed in size sinc e the comparison examination. An unchanged subcapsular calcified mass in liver segment is consiste nt with treated metastatic disease. An adjacent subtle, hyperenhancing mass of the right hepatic lobe is stable, likely flash filling hemangioma or focal nodular hyperplasia. The spleen, pancreas, gallb ladder, and left adrenal gland are normal. Again noted is a stable 1.3 cm right adrenal mass demonstr ated to be an adenoma by MRI. The kidneys are unremarkable. Changes of right hemicolectomy are noted. No pathologically enlarged abdominal or pelvic lymph nodes are identified. No free intraperitoneal g as or evidence of bowel obstruction. Again noted is a chronic 5 mm stone at the right ureterovesicula r junction. There is mild lumbar spondylosis. IMPRESSION: 1. Findings consistent with treated metastatic disease of the liver. Reviewed, dictated and finalized at location B. TGENOLOGIST
[2023-07-30 13:08] LABS: Estimated Glomerular Filt Rate > 60
== END 2023-07-30 12:47 | disposition home or self-care (01) ==
LOC: ANHIMG 12:47
PROVIDERS: PCP Internal Medicine; Visit Provider Internal Medicine Hematology & Oncology
DX: C18.9 Malignant neoplasm of colon, unspecified (principal); C78.7 Secondary malignant neoplasm of liver and intrahepatic bile duct
CPT/HCPCS: 36591; 74177; 80053; 82378; 85025; Q9967

== ENCOUNTER 2023-11-12 09:50 | Outpatient (CLI) | payer MEDICARE, MEDICAID, SELFPAY ==
--- NOTE | ~2023-11-12 | CT_ITS ---
CT of the Abdomen and Pelvis: Indication: Metastatic colon cancer Technique: 2.5 mm axial scans were obtained through the abdomen and pelvis following intravenous adm inistration of 100 cc of Omnipaque 350. Dose reduction technique was used on this scan by utilizing a utomated exposure control and iterative reconstruction technique. The dose-length product (DLP) was 2 38.42 mGy-cm. COMPARISON: 07/30/2023 Findings: Scans through the lung bases are unremarkable. Stable small hypodense hepatic mass (axial image 29). The spleen, pancreas, gallbladder, and kidneys are within normal limits. Stable small bilateral adrenal nodules. No evidence of aortic aneurysm. No lymphadenopathy. No bowel obstruction or bowel wall thickening. Prominent stool suggests constipation. Prior partial r ight colectomy. Images through the pelvis were performed. Urinary bladder unremarkable. No pelvic mass seen. No ascit es. Impression: Stable small hypodense hepatic mass, which could reflect metastatic disease, possibly treated disease . Constipation. Prior partial right colectomy. Stable small bilateral adrenal nodules. Reviewed, dictated and finalized at location . Impression: Stable small hypodense hepatic mass, which could reflect metastatic disease, po ssibly treated disease. Constipation. Prior partial right colectomy. Stable small bilateral adrenal nodules.
[2023-11-12 10:27] LABS: Estimated Glomerular Filt Rate > 60
[2023-11-12 11:39] LABS: Alanine Aminotransferase 10 U/L (6-50); Albumin Level 4.1 g/dL (3.5-5.1); Alkaline Phosphatase 59 U/L (38-126); Anion Gap 7 mmol/L (4-12); Aspartate Amino Transferase 19 U/L (17-59); Bilirubin,Total 0.4 mg/dL (0.2-1.3); Blood Urea Nitrogen 22 mg/dL (9-20); Calcium 9.2 mg/dL (8.4-10.2); Carbon Dioxide 27 mmol/L (22-30); Chloride 107 mmol/L (98-107); Estimated Glomerular Filt Rate > 60; Glucose 157 mg/dL (65-110); Potassium 3.9 mmol/L (3.4-5.0); Sodium 141 mmol/L (137-145)
[2023-11-12 11:46] LABS: Hemoglobin A1C 6.7 % (<5.7)
== END 2023-11-12 09:51 | disposition home or self-care (01) ==
PROVIDERS: Nurse Practitioner; PCP Internal Medicine; Visit Provider Internal Medicine Hematology & Oncology
DX: E11.9 Type 2 diabetes mellitus without complications (principal); Z79.4 Long term (current) use of insulin; C18.9 Malignant neoplasm of colon, unspecified; D35.01 Benign neoplasm of right adrenal gland; D35.02 Benign neoplasm of left adrenal gland
CPT/HCPCS: 36415; 74177; 80053; 83036; Q9967

== ENCOUNTER 2024-04-29 09:56 | Outpatient (CLI) | payer MEDICARE, MEDICAID, SELFPAY ==
--- NOTE | ~2024-04-29 | CT_ITS ---
EXAMINATION: CT abdomen pelvis w con DATE: 04/29/2024 10:10 INDICATION: Colon cancer. TECHNIQUE: Computed tomography (CT) of the abdomen and pelvis was performed with 100 mL Omnipaque 350 intravenous contrast. Automated exposure control and iterative reconstruction technique were employe d. The dose-length product was 206.07 mGy-cm. COMPARISON: CT abdomen and pelvis 11/12/2023, 03/18/21, 05/31/18 FINDINGS: The visualized portions of the lung bases demonstrates mild bronchiectasis. No pleural effu jori. The heart size is normal. No pericardial effusion. There is a 14 mm hypodense mass in segment 4 A the liver. There is a calcified mass in right hepatic lobe, consistent with treated metastatic dise ase. There is a chronic 13 mm hyperenhancing mass in right hepatic lobe, likely benign. The spleen, g allbladder, pancreas, and kidneys are normal. There is a 5 mm stone at right ureterovesicular junctio n. There is chronic nodular thickening in the adrenal glands, likely benign. The prostate is mildly e nlarged. There are changes of right hemicolectomy. There are no pathologically enlarged lymph nodes. There is no free intraperitoneal fluid. There is mild lumbar spondylosis. IMPRESSION: 1. Stable 14 mm liver mass, consistent with metastatic disease. 2. Chronic 5 mm stone at right ureterovesicular junction. No hydronephrosis. Reviewed, dictated and finalized at location A. ING TOOL TECHNICIAN OIL WELL
[2024-04-29 10:04] LABS: Estimated Glomerular Filt Rate > 60
== END 2024-04-29 09:57 | disposition home or self-care (01) ==
PROVIDERS: PCP Nurse Practitioner; Visit Provider Internal Medicine Hematology & Oncology
DX: C18.9 Malignant neoplasm of colon, unspecified (principal); C78.7 Secondary malignant neoplasm of liver and intrahepatic bile duct; N20.1 Calculus of ureter
CPT/HCPCS: 74177; Q9967

== ENCOUNTER 2024-08-13 07:47 | Outpatient (CLI) | payer MEDICARE, MEDICAID, SELFPAY ==
--- NOTE | ~2024-08-13 | CT_ITS ---
EXAMINATION: CT chest abdomen pelvis w con DATE: 08/13/2024 08:22 INDICATION: Colon cancer metastasized to liver. TECHNIQUE: Computed tomography (CT) of the chest, abdomen, and pelvis was performed with 100 mL Omnip aque 350 intravenous contrast. Automated exposure control and iterative reconstruction technique were employed. The dose-length product was 471.14 mGy-cm. COMPARISON: CT abdomen and pelvis 04/29/2024, 02/17/2020 FINDINGS: CHEST CT: The lungs demonstrate mild atelectasis. Calcified pulmonary nodules are consistent with old granuloma tous disease. No pleural effusion. There is an 18 mm nodule in right thyroid lobe, stable from 020, likely benign. The heart size is normal. No pericardial effusion. There is mild thoracic spondyl osis. There is mild chronic anterior wedging of multiple vertebral bodies. ABDOMEN/PELVIS CT: There is a 12 mm calcification in right hepatic lobe with focal volume loss, consistent with treated malignancy. There is a 15 x 10 mm mass in segment 4A of the liver, stable from 04/29/2024. The gallbl adder, spleen, pancreas, and left adrenal gland are normal. There is a 12 mm mass in right adrenal gl and stable from 02/17/2020, likely an adenoma. The kidneys are normal. There is a 5 mm stone at right ureterovesicular junction. There are changes of right hemicolectomy. There are no dilated loops of aren wel. There are no pathologically enlarged lymph nodes. There is no free intraperitoneal fluid. There is mild lumbar spondylosis. IMPRESSION: 1. Stable 15 mm liver mass, consistent with metastatic disease. 2. Chronic 5 mm stone at right ureterovesicular junction. No hydronephrosis. Reviewed, dictated and finalized at location B.
--- OUTSIDE RECORDS SUMMARY | 2024-08-13 07:51 | XMS_ITS | Encounter Summary ---
Author Organization [facility] Address [address] [place] [address] Care Team Providers Care Bottling Room Worker Name Role Phone EliecerFredis flor Primary Care Provider Reason for Visit * Reason Comments Medication Refill Encounter Details Date Type Department Care Team (Late Contact Info) Description 11/27/2018 Refill [facility] Oncology and [facility] [address] [place] [address] Javi Burrows MD [address] [place] [id number] Metastatic colon cancer to liver (CMS/HCC) Social History Tobacco Use Types Packs/Day Years Used Date Smoking Tobacco: Former Cigarettes Q uit: 07/04/2013 Smokeless Tobacco: Never Comments:pt only smoked when he drank like 1 cig a day Alcohol Use Standard Drinks/Week Comments No 0 (1 standard drink = 0.6 oz pur e alcohol) Sex and Gender Information Value Date Recorded Sex Assigned at Not on file 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 [address] [place] [address] Javi Burrows MD [address] [place] [id number] 10/03/2024 9:45 AM CDT Office Visit [facility] Oncology and Hemat[facility] [address] [facility] [address] [place] [address] Javi Burrows MD [address] [facility] [facility] [address] [place] [address] documented as of this encounter Visit Diagnoses Diagnosis Metastatic colon cancer to liver (CMS/HCC) Malignant neoplasm of colon, unspecified site documented in this encounter Care Teams Bottling Room Worker Relationship Specialty Start Date End Date Fredis Khan DO [address] [facility] [address] [place] [address] PCP - General Internal Medicine 07/03/18 documented as of this encounter
--- OUTSIDE RECORDS SUMMARY | 2024-08-13 07:52 | XMS_ITS | Referral Summary ---
Author Organization [facility] Address [address] [place] [address] Phone Care Team Providers Care Coyote Hunter Name Role Phone Jarrett Stevens MD Unavailable [phone] Fredis Khan DO Primary Care Provider [phone] Encounters Date Type Department Care Team Description 07/31/2024 11:10 AM [facility]ING [facility]HE TENDER Lab [address] [id number] from Last 3 Months Allergies No known active allergies Medications LANTUS U-100 INSULIN 100 unit/mL injection INJ 10 UNI SC ATN 3 8 Active lisinopril (PRINIVIL,ZESTR OK) 20 mg tablet TK 1 T D 3 8 Active ferrous sulfate 325 mg (65 mg of elemental iron) tabletIndicatio ns:Iron Deficiency Anemia 9 Active jmdgtxxd-olm-MG -lycopen-lutein (CENTRUM SILVER) 0.4-300-250 mg-mcg-mcg tabletIndicatio ns:Vitamin Deficiency Prevention daily. Active prochlorperazin e (COMPAZINE) 10 mg tabletIndicatio ns:Primary cancer of cecum (HCC) Take 1 tablet (10 mg total) by mouth every 6 (six) hours as needed for nausea or vomiting. Use first for nausea. 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 Denies 03/10/2024 Sex and Gender Information Value Date Recorded Sex Assigned at Not on file Legal Sex Male 4:54 AM GROOVING LATHE TENDER Gender Identity Not on file Sexual Orientation Not on file Last Filed Vital Signs Vital Sign Reading Time Taken Comments Blood Pressure 138/86 03/10/2024 7:59 AM CDT Pulse 79 03/10/2024 7:59 AM CDT Temperature 36.3 C (97.4 F) 03/10/2024 7:59 AM CDT Respiratory Rate 16 03/10/2024 7:59 AM CDT Oxygen Saturation 99% 03/10/2024 8:32 AM CDT Inhaled Oxygen Concentration - - Weight 64.4 kg (142 lb) 03/10/2024 7:59 AM CDT Height 172.7 cm (5' 8 ) 03/10/2024 7:59 AM CDT Body Mass Index 21.59 03/10/2024 7:59 AM CDT Plan of Treatment Not on file Procedures Procedure Name Priority Date/Time Associated Diagnosis Comments EGFR Routine 07/31/2024 11:37 AM GROOVING LATHE TENDER DIFFERENTIAL AUTO Routine 07/31/2024 11: 37 AM GROOVING LATHE TENDER CBC WITH AUTO DIFFERENTIAL Routine 07/31/2024 11:37 AM GROOVING LATHE TENDER COMPREHENSIVE METABOLIC PANEL Routine 07/31/2024 11:37 AM GROOVING LATHE TENDER CEA Routine 07/31/2024 11:37 AM GROOVING LATHE TENDER HEMOGLOBIN A1C Routine 06/13/2023 9:20 AM GROOVING LATHE TENDER LIPID PANEL Routine 06/13/2023 9:20 AM GROOVING LATHE TENDER ALBUMIN CREATININE RATIO, URINE Routine 06/13/2023 9:20 AM GROOVING LATHE TENDER PSA SCREEN Routine 06/13/2023 9:20 AM GROOVING LATHE TENDER from Last 3 Months or Most Recently Relevant to Health Maintenance Results * eGFR (07/31/2024 11:37 AM GROOVING LATHE TENDER) eGFR >90 >=60 mL/min/1. 73 m2 Comment: Interpretive Data Reference Interval Normal >/= 90 mL/min/1.73m2 Mildly decreased* 60 - 89 mL/min/1.73m2 Mildly to moderately decreased 45 - 59 mL/min/1.73m2 Moderately to severely decreased 30 - 44 mL/min/1.73m2 Severely decreased 15 - 29 mL/min/1.73m2 Kidney Failure < 15 mL/min/1.73m2 *Relative to young adult level Estimated glomerular filtration rate is determined by the 2020 CKD-EPI equation recommended by the National Kidney Foundation (A Unifying Approach to GFR Estimation: Recommendations of the NKF-ASK Task Force on Reassessing the Inclusion of Race in Diagnosing Kidney Disease, JASN 2020). The CKD-EPI equation should not be used for patients with unstable renal function and has not been validated in children and those over 70. Current interpretive data was last reviewed 2021. Blood 07/31/2024 11:3 7 AM GROOVING LATHE TENDER 07/31/2024 11:43 AM GROOVING LATHE TENDER us Javi Burrows MD LAB BLOOD ORDERABLES Final Res ult [facility] ([place] 1 [facility] Department [place] [address] * Differential, auto (07/31/2024 11:37 AM GROOVING LATHE TENDER) Neutrophil abs 3.6 1.5 - 6.5 K/cumm Imm gran abs 0.0 0.0 - 0.1 K/cumm [facility] ([place]) Lymphocyte abs 1.1 0.8 - 3.3 K/cumm [facility] ([place]) Monocyte abs 0.7 0.2 - 0.8 K/cumm [facility] ([place]) Eosinophil abs 0.4 0.0 - 0.5 K/cumm [facility] ([place]) Basophil abs 0.0 0.0 - 0.1 K/cumm [facility] ([place]) Neutrophil pct 62.6 % [facility] ([place]) Comment: Interpretive Data Percent cell count reference ranges are not reported, since discordance with absolute values may lead to misinterpretation of CBC data. Current Interpretive Data was last revised on 2017. Imm gran pct 0.2 % [facility] ([place]) Comment: Interpretive Data Percent cell count reference ranges are not reported, since discordance with absolute values may lead to misinterpretation of CBC data. Current Interpretive Data was last revised on 2017. Lymphocyte pct 19.2 % [facility] ([place]) Comment: Interpretive Data Percent cell count reference ranges are not reported, since discordance with absolute values may lead to misinterpretation of CBC data. Current Interpretive Data was last revised on 2017. Monocyte pct 11.7 % [facility] ([place]) Comment: Interpretive Data Percent cell count reference ranges are not reported, since discordance with absolute values may lead to misinterpretation of CBC data. Current Interpretive Data was last revised on 2017. Eosinophil pct 6.0 % [facility] ([place]) Comment: Interpretive Data Percent cell count reference ranges are not reported, since discordance with absolute values may lead to misinterpretation of CBC data. Current Interpretive Data was last revised on 2017. Basophil pct 0.3 % [facility] ([place]) Comment: Interpretive Data Percent cell count reference ranges are not reported, since discordance with absolute values may lead to misinterpretation of CBC data. Current Interpretive Data was last revised on 2017. Blood 07/31/2024 11:3 7 AM GROOVING LATHE TENDER 07/31/2024 11:43 AM GROOVING LATHE TENDER us Javi Burrows MD LAB BLOOD ORDERABLES Final Res ult [facility] ([place]) 1 [facility] Department [place] [address] * (ABNORMAL) CBC with auto differential (07/31/2024 11:37 AM GROOVING LATHE TENDER) WBC 5.8 3.8 - 9.9 K/cumm Hgb 13.8 13.0 - 17.5 g/dL [facility] ([place]) Hct 39.8 38.9 - 50.3 % [facility] Plt 213 150 - 400 K/cumm [facility] ([place]) MPV 9.9 9.1 - 12.3 fL [facility] ([place]) RBC 4.25(L) 4.30 - 5.80 M/cumm [facility] ([place]) MCV 93.6 81.3 - 96.4 fL [facility] ([place]) MCH 32.5 27.1 - 33.3 pg [facility] ([place]) MCHC 34.7 32.3 - 35.7 g/dL [facility] ([place]) RDW CV 12.5 11.1 - 14.9 % [facility] ([place]) RDW SD 42.8 35.7 - 48.1 fL [facility] ([place]) NRBC abs 0.00 0.00 - 0.01 K/cumm [facility] ([place]) Blood 07/31/2024 11:3 7 AM GROOVING LATHE TENDER 07/31/2024 11:43 AM GROOVING LATHE TENDER us Javi Burrows MD LAB BLOOD ORDERABLES Final Res ult [facility] ([place]) 1 [facility] Department [place] [address] * CEA (07/31/2024 11:37 AM GROOVING LATHE TENDER) CEA 4.1 0.1 - 5.0 ng/mL Comment: Interpretive Data The Alpa CEA assay procedure was used. Results from different manufacturers or methods may not be comparable. Serial testing should be performed using the same method. Testing performed by: [facility], [address] [place] [address], [place]., [address] Blood 07/31/2024 11:3 7 AM GROOVING LATHE TENDER 07/31/2024 1:13 PM GROOVING LATHE TENDER us Javi Burrows MD LAB BLOOD ORDERABLES Final Res ult [facility] ([place]) 1 [facility] Department [place] [address] * Comprehensive metabolic panel (07/31/2024 11:37 AM GROOVING LATHE TENDER) Sodium 139 135 - 145 mmol/L Potassium, pl 3.5 3.3 - 4.9 mmol/L [facility] ([place]) Chloride 101 97 - 110 mmol/L [facility]) CO2 29 22 - 32 mmol/L [facility]) Anion gap 9 2 - 15 mmol/L [facility] ([place]) BUN 16 6 - 25 mg/dL [facility] ([place]) Creatinine 0.89 0.80 - 1.30 mg/dL [facility] ([place]) Glucose 164 70 - 199 mg/dL [facility] ([place]) Comment: Interpretive Data Fasting glucose >/= 126 mg/dl is diagnostic for diabetes. Fasting is defined as no caloric intake for at least 8 hours. Fasting glucose between 100 mg/dl to 125 mg/dl is diagnostic of prediabetes. In a patient with classic symptoms of hyperglycemia or hyperglycemic crisis, a random glucose >/= 200 mg/dl is diagnostic for diabetes. In the absence of unequivocal hyperglycemia, results should be confirmed by repeat testing. The classification and Diagnosis of Diabetes Diabetes Care 202; 46: S19-S40. Current interpretive data was last revised 2022. Calcium 9.4 8.5 - 10.3 mg/dL [facility] ([place]) Bilirubin, total 0.8 0.1 - 1.2 mg/dL [facility] ([place]) Protein, pl 7.8 6.5 - 8.5 g/dL [facility] ([place]) Albumin 4.3 3.5 - 5.0 g/dL [facility] ([place]) Alk phos 68 40 - 130 Units/L [facility]) ALT 7 7 - 55 Units/L [facility]) AST 15 10 - 50 Units/L [facility] ([place]) Blood 07/31/2024 11:3 7 AM GROOVING LATHE TENDER 07/31/2024 11:43 AM GROOVING LATHE TENDER Javi Burrows MD LAB BLOOD ORDERABLES Final Res ult Performing Organization Address [facility] Co de Phone Number ROX [facility] ([place]) [address] [place] [address] * PSA screen (06/13/2023 9:20 AM GROOVING LATHE TENDER) PSA-Total 0.99 <=5.40 ng/mL [facility] ([place]) Comment: Interpretive Data AGE SEX REFERENCE INTERVAL 0 minutes-150 years Female None 0 minutes-49 years Male None 50-59 years Male 0-3.90 60-69 years Male 0-5.40 70-79 years Male 0-6.20 80-150 years Male 0-6.20 The Alpa PSA Total assay procedure was used. Results from different manufacturers or methods may not be comparable. Serial testing should be performed using the same method. Current interpretive data last revised 21. Blood 06/13/2023 9:20 AM GROOVING LATHE TENDER 06/13/2023 10:56 AM GROOVING LATHE TENDER Debbie Cartwright PHOTO COLORER LAB BLOOD ORDERABLES Final R esult Performing Organization Address [facility] Co de Phone Number [facility] ([place] [address] [place] [address] * Albumin Creatinine Ratio, Urine (06/13/2023 9:20 AM GROOVING LATHE TENDER) Albumin Ur 29.6 mg/L [facility] ([place]) Comment: Interpretive Data No reference range established. Current interpretive data was last revised 2018. Testing performed by: [address] [place]., [address] Creatinine Ur 328.9 mg/dL [facility] ([place]) Comment: Interpretive Data No reference range established. Current interpretive data was last revised 2018. Testing performed by: [address] [place]., [address] Albumin Creatinine Ratio, Ur 9 1 - 29 mg/g [facility] [place] ([place]) Comment:Testing performed by : [facility], [address] [place] [address]., [address] Urine 06/13/2023 9:20 AM GROOVING LATHE TENDER 06/13/2023 2:02 PM GROOVING LATHE TENDER Debbie Cartwright PHOTO COLORER LAB URINE ORDERABLES Final R esult Performing Organization Address [facility] de Phone Number [facility] ([place]) 1 [facility] [place] [address] * (ABNORMAL) Hemoglobin A1c (06/13/2023 9:20 AM GROOVING LATHE TENDER) Hgb A1C 7.1(H) 4.0 - 5.6 % [facility] [place] ([place]) Estimated Average Glucose 157 mg/dL [facility] [place] ([place]) Comment: The ADA recommends reporting an estimated Average Glucose (eAG) with all Hemoglobin A1c results using the equation derived from a study of 507 normal and diabetic adults. Minority populations were underrepresented and children were not included. (Diabetes Care 31:2055-6620, 2008). The eAG is not equivalent to a fasting glucose. Blood 06/13/2023 9:20 AM GROOVING LATHE TENDER 06/13/2023 10:56 AM GROOVING LATHE TENDER Debbie Cartwright PHOTO COLORER LAB BLOOD ORDERABLES Final R esult Performing Organization Address [facility] de Phone Number [facility] ([place]) 1 [facility] [place] [address] * Lipid panel (06/13/2023 9:20 AM GROOVING LATHE TENDER) Cholesterol 143 30 - 199 mg/dL [facility] [place] ([place]) Comment: Interpretive Data Ages < or = 19 years Acceptable: <170 mg/dL Borderline high: 170-199 mg/dL High: >or= 200 mg/dL Ages > or = 20 years Desirable: <200 mg/dL Borderline high: 200-239 mg/dL High: >or= 240 mg/dL Literature References: 1. Expert Panel on Integrated Guidelines for Cardiovascular Health and Risk Reduction in Children and Adolescents. Pediatrics 2011;128:S213 2. NCEP Expert Panel. Circulation 2004;110:227 Current Interpretive Data was last revised on 2018. Triglycerides 47 <=149 mg/dL [facility] [place] ([place]) Comment: Interpretive Data Ages < or = 9 years Acceptable: <75 mg/dL Borderline high: 75-99 mg/dL High: >or= 100 mg/dL Ages 10 to 20 years Acceptable: <90 mg/dL Borderline high: 90-129 mg/dL High: >or= 130 mg/dL Ages > or = 20 years Desirable: <150 mg/dL Borderline high: 150-199 mg/dL High: 200-499 mg/dL Very high: >or= 499 mg/dL Literature References: 1. Expert Panel on Integrated Guidelines for Cardiovascular Health and Risk Reduction in Children and Adolescents. Pediatrics 2011;128:S213 2. NCEP Expert Panel. Circulation 2003;110:227 Current Interpretive Data was last revised on 2018. HDL 51 >=40 mg/dL [facility] [place] ([place]) Comment: Interpretive Data Ages < or = 19 years Acceptable: >45 mg/dL Borderline low: 40-45 mg/dL Low: <40 mg/dL Ages > or = 20 years Desirable: >or= 60 mg/dL Low: <40 mg/dL Literature References: 1. Expert Panel on Integrated Guidelines for Cardiovascular Health and Risk Reduction in Children and Adolescents. Pediatrics 2011;128:S213 2. NCEP Expert Panel. Circulation 2003;110:227 Current Interpretive Data was last revised on 2018. LDL, calculated 83 <=129 mg/dL [facility] [place] ([place]) Comment: Interpretive Data Ages < or = 19 years Acceptable: <110 mg/dL Borderline high: 110-129 mg/dL High: >or= 130 mg/dL Ages > or = 20 years Optimal: <100 mg/dL Near optimal: 100-129 mg/dL Borderline high: 130-159 mg/dL High: >160 mg/dL Literature References: 1. Expert Panel on Integrated Guidelines for Cardiovascular Health and Risk Reduction in Children and Adolescents. Pediatrics 2011;128:S213 2. NCEP Expert Panel. Circulation 2004;110:227 Current Interpretive Data was last revised on 2018. Non-HDL Cholesterol 92 mg/dL [facility] ([place]) Comment: Interpretive Data Ages < or = 19 years Acceptable: <120 mg/dL Borderline high: 120-144 mg/dL High: >145 mg/dL Ages > or = 20 years When triglycerides are >200 mg/dL, Non-HDL cholesterol is a secondary target of therapy with treatment goals that are 30 mg/dL greater than the LDL cholesterol target. Literature References: 1. Expert Panel on Integrated Guidelines for Cardiovascular Health and Risk Reduction in Children and Adolescents. Pediatrics 2011;128:S213 2. NCEP Expert Panel. Circulation 2004;110:227 Current Interpretive Data was last revised on 2018. Chol/HDL ratio 3 [facility] ([place]) Blood 06/13/2023 9:20 AM GROOVING LATHE TENDER 06/13/2023 10:56 AM GROOVING LATHE TENDER Debbie Cartwright PHOTO COLORER LAB BLOOD ORDERABLES Final R esult [facility] ([place]) 1 [facility] Department [place] [address] from Last 3 Months or Most Recently Relevant to Health Maintenance Insurance [facility] [place] [address] MEDICARE SOLUTIONS Care Teams Coyote Hunter Relationship Specialty Start Date End Date Fredis Khan DO PCP - General Internal Medicine 06/21/18 Jarrett Stevens MD Medical Oncologist/Hot Plate Press Operator Hematology and Oncology 06/17/18
--- OUTSIDE RECORDS SUMMARY | 2024-08-13 07:52 | XMS_ITS | CONTINUITY OF CARE DOCUMENT ---
Author Name brenda gutierrez Address Unknown Organization [facility] Address [address] [place] [address] [address] [place] [address] Phone [phone] Care Team Providers Care Marine Fitter Name Role Phone Issac Nair MD Unavailable ASHER RIVERA DO Unavailable [phone] ASHER RIVERA DO Unavailable [phone] INSURANCE PROVIDERS Payer name Policy type / Coverage type [place] red constitution party ID [employer] MEDICAID (2) Medicaid [id number]
--- OUTSIDE RECORDS SUMMARY | 2024-08-13 07:52 | XMS_ITS | Clinical Summary ---
Author Organization [facility] Address [address] [place] [address] Care Team Providers Care Clinical Marketing Manager Name Role Phone Fredis Khan DO Primary Care Provider Allergies No known active allergies Medications ferrous sulfate 325 mg (65 mg iron) tablet TK 1 T PO BID 0 06/16/19 19 Active LANTUS U-100 INSULIN 100 unit/mL vial INJ 10 UNI SC ATN 3 04/29/20 18 Active prochlorperazin e maleate (COMPAZINE) 10 mg tablet TK 1 T PO Q 6 H PRN . USE FIRST FOR NAUSEA 3 06/21/19 19 Active ondansetron (ZOFRAN) 8 mg Tablet TK 1 T PO Q 8 H PRN. USE IF PROCHLOPERAZINE DOES NOT STOP NAUSEA 3 06/21/19 19 Active CIALIS 5 mg tablet TK 1 T PO QD 0 04/18/20 18 Active hydroCHLOROthia zide 25 mg tablet TK 1 T PO QAM 1 04/29/20 18 Active lidocaine-prilo kolton (EMLA) 2.5-2.5 % Cream Apply to port site 30-60 min before use. 30 Gram 3 07/16/19 19 Active amLODIPine (NORVASC) 10 mg tablet 01/10/20 19 Active chlorproMAZINE (THORAZINE) 25 mg tablet Tid prn hiccups. 60 Tablet 1 01/22/20 19 Active ONETOUCH DELICA PLUS LANCET 30 gauge USE TO CHECK BS 2 TO 3 TIMES D 1 03/25/20 19 Active ONETOUCH VERIO Strip TEST BS TWO TO TID UTD 1 03/25/20 19 Active acetaminophen (TYLENOL) 325 mg tablet Take 650 mg by mouth every 4 hours as needed. 10/30/19 18 Active Insulin Syringe-Needle U-100 0.3 mL 29 gauge Syringe USE FOR INSULIN 3 02/26/20 19 Active BD ULTRA-FINE MICRO PEN NEEDLE 32 gauge x 1/4 Needle USE DIRECTED D 1 02/14/20 19 Active simvastatin (ZOCOR) 10 mg tablet Take 10 mg by mouth daily with supper. Active Lidocaine 4 % Adhesive Patch, Medicated Please place one patch below right abdominal incision for 12 hours daily. Remove after 12 hours. 10 Patch 05/13/20 19 Active naloxone (NARCAN) 4 mg/spray Marshall, Non-Aerosol EMERGENCY USE ONLY: Administer 1 spray (4 mg) in one nostril one time. May repeat in alternating nostrils every 2-3 min until responsive or EMS arrives. 2 Each 3 10/09/19 20 Active atorvastatin (LIPITOR) 10 mg tablet TK 1 T PO D 01/22/20 20 Active albuterol HFA 90 mcg inhaler 02/23/20 20 Active lisinopriL (PRINIVIL) 20 mg tablet TK 1 T PO D 04/19/20 20 Active capecitabine (XELODA) 500 mg tabletIndicatio ns:Colon cancer metastasized to liver (CMS/HCC) TAKE 2 TABLETS BY MOUTH TWICE DAILY FOR 14 DAYS ON AND 1 WEEK OFF DIRECTED 56 Tablet 6 05/17/20 23 Active potassium chloride (KLOR-CON M10) 10 mEq Extended Release tablet Take 1 Tablet (10 mEq) by mouth daily. 60 Tablet 4 09/26/19 24 Active diazePAM (VALIUM) 10 mg tabletIndicatio ns:Colon cancer metastasized to liver (CMS/HCC),Metas tatic colon cancer to liver (CMS/HCC) Take half tab by mouth every 8 hours as needed. 45 Tablet 08/01/19 25 Active oxyCODONE (ROXICODONE) 10 mg tabletIndicatio ns:Colon cancer metastasized to liver (CMS/HCC) Take 1 Tablet (10 mg) by mouth every 4 hours as needed for Pain, Moderate. Max Daily Amount: 60 mg 120 Tablet 08/01/19 25 Active diazePAM (VALIUM) 10 mg tabletIndicatio ns:Colon cancer metastasized to liver (CMS/HCC),Metas tatic colon cancer to liver (CMS/HCC) Take half tab by mouth every 8 hours as needed. 45 Tablet 07/04/19 25 025 Discontin ued(Reord er) oxyCODONE (ROXICODONE) 10 mg tabletIndicatio ns:Colon cancer metastasized to liver (CMS/HCC) Take 1 Tablet (10 mg) by mouth every 4 hours as needed for Pain, Moderate. Max Daily Amount: 60 mg 120 Tablet 07/04/19 25 025 Discontin ued(Reord er) Active Problems Problem Noted Date Diagnosed Date Diabetes mellitus 11/29/2018 Colon cancer metastasized to liver 07/31/2018 Benign hypertension Encounters Date Type Department Care Team Description 08/01/2024 11:30 AM BABY STROLLER RENTAL CLERK Office Visit [facility] On[facility] Hematology [facility] [address] [place] [address] Javi Burrows MD Colon cancer metastasized to liver (CMS/HCC) (Primary Dx); Metastatic colon cancer to liver (CMS/HCC) 08/01/2024 Orders Only [facility] Oncology and Hematology [facility] [address] [place] [address] Javi Burrows MD 07/23/2024 External Device Data STL ABSTRACTION Provider, Abstract 07/04/2024 Refill [facility] On[facility] [address] [place] [address] Javi Burrows MD Colon cancer metastasized to liver (CMS/HCC); Metastatic colon cancer to liver (CMS/HCC) 07/01/2024 External Device Data STL ABSTRACTION Provider, Abstract 06/26/2024 External Device Data STL ABSTRACTION Provider, Abstract 06/05/2024 Refill [facility] Oncology [facility] Hematology [facility] [address] [place] [address] Tavo Lyn MD Colon cancer metastasized to liver (CMS/HCC); Metastatic colon cancer to liver (CMS/HCC) from Last 3 Months Family History Relation Name Status Comments Father Mother Alive Sister Alive Social History Tobacco Use Types Packs/Day Years Used Date Smoking Tobacco: Former Cigarettes 0.3 5 0 07/04/2008 - 07/04/2013 Smokeless Tobacco: Never Tobacco Cessation:Counseling Given: Not Answered Comments:pt only smoked when he drank like 1 cig a day Alcohol Use Standard Drinks/Week Comments No 0 (1 standard drink = 0.6 oz pur e alcohol) Sex and Gender Information Value Date Recorded Sex Assigned at Not on file Legal Sex Male 8:32 AM BABY STROLLER RENTAL CLERK Gender Identity Not on file Sexual Orientation Not on file Last Filed Vital Signs Vital Sign Reading Time Taken Comments Blood Pressure 134/84 08/01/2024 11:04 AM BABY STROLLER RENTAL CLERK Pulse 97 08/01/2024 11:04 AM BABY STROLLER RENTAL CLERK Temperature 36.7 C (98 F) 08/01/2024 11:04 AM BABY STROLLER RENTAL CLERK Respiratory Rate 15 08/01/2024 11:0 4 AM BABY STROLLER RENTAL CLERK Oxygen Saturation 95% 08/01/2024 11: 04 AM BABY STROLLER RENTAL CLERK Inhaled Oxygen Concentration - - Weight 62 kg (136 lb 9.6 oz) 08/01/2024 11:04 AM BABY STROLLER RENTAL CLERK Patient stated that this is his correct weight and says that its from his chemo Height 172.7 cm (5' 8 ) 02/23/2022 9:21 AM CDT Body Mass Index 20.77 02/23/2022 9:21 AM CDT Plan of Treatment Upcoming Encounters Date Type Department Care Team (Late st Contact Info) Description 08/14/2024 4:30 PM CDT Telephone Check Up [facility] Oncology and Hematology [facility] [address] [place] [address] Javi Burrows MD [email or web address] [address] [place] [address] 10/03/2024 9:45 AM CDT Office Visit [facility] Oncology and Hematology [address] [place] [address] Javi Burrows MD [email or web address] [address] [place] [address] Health Maintenance Due Date Last Done Comments DIABETES ANNUAL FOOT EXAM 11/21/1975 DIABETES ANNUAL RETINAL EXAM 11/21/1975 DIABETES MICROALBUMIN ANNUAL SCREEN 11/21/1975 LDL CHOLESTEROL ANNUAL 11/21/1975 DTAP/TDAP/TD VACCINES (1 - Tdap) 1976 PNEUMOCOCCAL VACCINE 50+ YEA RS (1 of 2 - PCV) 1976 ZOSTER VACCINE (1 of 2) 1976 RSV VACCINE (60+ or ) (1 - Risk 60-74 years 1-dose series) 2017 Abdominal Aortic Aneurysm (A AA) Screening 2022 INFLUENZA VACCINE (#1) 2024 DIABETES HBA1C Q 6 MONTHS 05/13/20242023, 06/13/2023, 12/20/2022 [place] Prev entative Visit/Annual Wellness Visit 06/04/2024 Medical Devices Implanted Type Area Presentation Manager Device Identifier Shelf Expiration Date Model / Serial / Lot Clip Ligating Horizon Med Ti [id number] - Csc - [id number] Implanted:Qt y: 2 on 05/09/2019 by Refugio Carter MD at [facility] Clip N/A: Abdomen TELEFLEX- WECK CLOSURE SYS [id number] 02/19/2023 [id number] / / [id number] Clip Ligating Horizon Sm Ti [id number] - Csc - [id number] Implanted:Qt y: 1 on 05/09/2019 by Refugio Carter MD at [facility] Clip Abdomen TELE[employer]LEX INC 08/26/2023 [id number] / / [id number] Hemostat Surg Snow 2x4in 2081 - [id number] Implanted:Qt y: 1 on 05/09/2019 by Refugio Carter MD at [facility] Hemostatic N/A: Abdomen J&J- [employer] [id number] 01/01/2021 2082 / / [id number] Procedures Procedure Name Priority Date/Time Associated Diagnosis Comments COMPREHENSIVE METABOLIC PANEL Routine 07/31/2024 9:30 AM BABY STROLLER RENTAL CLERK HEMOGLOBIN A1C Routine 11/12/2023 12:09 PM CDT from Last 3 Months or Most Recently Relevant to Health Maintenance Results * COMPREHENSIVE METABOLIC PANEL (07/31/2024 9:30 AM BABY STROLLER RENTAL CLERK) Blood Javi Burrows MD CHEMISTRY ORDERABLES Final Resu lt * HEMOGLOBIN A1C (11/12/2023 12:09 PM CDT) Blood Javi Burrows MD CHEMISTRY ORDERABLES Final Resu lt from Last 3 Months or Most Recently Relevant to Health Maintenance Insurance [place]ICAID [place] [facility] [address] MEDICAID [place] RX [employer] Medicaid RX [place] PLANS (INTERNAL) [facility] Plans Advance Directives For more information, please contact: [phone] * Full Code (Latest Code Status on File) Date Activated Date Inactivated Comments 05/09/2019 2:32 PM 05/13/2019 12:08 PM * Full Code Date Activated Date Inactivated Comments 05/09/2019 6:40 AM 05/09/2019 2:31 PM Care Teams Clinical Marketing Manager Relationship Specialty Start Date End Date Fredis Khan DO [address] [address] PCP - General Internal Medicine 07/03/18
--- OUTSIDE RECORDS SUMMARY | 2024-08-13 07:52 | XMS_ITS | Clinical Summary ---
Author Organization [facility] Address [address] [place] [address] Phone Care Team Providers Care Supervisor Keymodule Assembly Name Role Phone Jarrett Stevens MD Unavailable [phone] Fredis Khan DO Primary Care Provider [phone] Allergies No known active allergies Medications LANTUS U-100 INSULIN 100 unit/mL injection INJ 10 UNI SC ATN 3 8 Active lisinopril (PRINIVIL,ZESTR [place]) 20 mg tablet TK 1 T D 3 8 Active ferrous sulfate 325 mg (65 mg of elemental iron) tabletIndicatio ns:Iron Deficiency Anemia 9 Active ocnackee-umu-DT -lycopen-lutein (CENTRUM SILVER) 0.4-300-250 mg-mcg-mcg tabletIndicatio ns:Vitamin [...] 05/06/2012 Diabetes mellitus 05/06/2012 Current smoker 07/21/2010 Encounters Date Type Department Care Team Description 07/31/2024 11:10 AM DEVELOPMENT ADVISOR Lab [address] [address] from Last 3 Months Surgical History Surgery Date Site/Laterality Comments BIOPSY LIVER 06/18/2012 N/A Medical History Medical History Date Comments Diabetes mellitus (HCC) Liver metastasis 06/22/2018 Social History Tobacco Use Types Packs/Day Years [...] on file Legal Sex Male 4:54 AM DEVELOPMENT ADVISOR Gender Identity Not on file Sexual Orientation Not on file Obstetrics History Last Filed Vital Signs Vital Sign Reading [...] 03/10/2024 7:59 AM CDT Plan of Treatment Health Maintenance Due Date Last Done Comments Colon Cancer Screening-Colonoscopy 1957 Depression Screening 1957 Fall Risk Assessment 1957 Dilated Eye Exam 1957 Foot Exam 1957 DTaP/Tdap/Td Vaccine (1 - Tdap) 1968 Hepatitis B Screening 11/21/1975 Pneumococcal vaccine 65+ (1 of 2 - PCV) 1976 Abdominal Aortic Aneurysm (A AA) Screen 2022 11/29/2020, 02/17/2020, 10/08/2019, Additional history exists Well Visit 65+ 2022 Hemoglobin A1C 12/12/2023 06/13/2023, 12/02, 09/27/2017 Covid-19 Vaccine (2023- 5 season) 2024 02/24/2022, 09/02/2021, 03/28/2021, Additional history exists Influenza Vaccine (#1) 2024 2, 03/28/2021, 03/19/2020, Additional history exists Albumin Creatinine Ratio, Urine 06/13/2024 4, 12/20/2022 Lipid Panel 06/13/2024 06/13/2023, 12/02, 09/27/2017 Prostate Cancer Screening-PSA 06/13/2025 06/13/2023, 12/20/2022 eGFR 07/31/2025 07/31/2024, 04/05, 03/10/2024, Additional history exists Hepatitis C Screening Completed 06/18/2012 , 06/18/2012, 06/05/2012, Additional history exists Zoster Vaccine Completed 07/07/2022, 02/24/2022 Procedures Procedure Name Priority Date/Time Associated Diagnosis Comments EGFR Routine 07/31/2024 11:37 AM DEVELOPMENT ADVISOR DIFFERENTIAL AUTO Routine 07/31/2024 11: 37 AM DEVELOPMENT ADVISOR CBC WITH AUTO DIFFERENTIAL Routine 07/31/2024 11:37 AM DEVELOPMENT ADVISOR COMPREHENSIVE METABOLIC PANEL Routine 07/31/2024 11:37 AM DEVELOPMENT ADVISOR CEA Routine 07/31/2024 11:37 AM DEVELOPMENT ADVISOR HEMOGLOBIN A1C Routine 06/13/2023 9:20 AM DEVELOPMENT ADVISOR LIPID PANEL Routine 06/13/2023 9:20 AM DEVELOPMENT ADVISOR ALBUMIN CREATININE RATIO, URINE Routine 06/13/2023 9:20 AM DEVELOPMENT ADVISOR PSA SCREEN Routine 06/13/2023 9:20 AM DEVELOPMENT ADVISOR from Last 3 Months or Most Recently Relevant to Health Maintenance Results * eGFR (07/31/2024 11:37 AM DEVELOPMENT ADVISOR) eGFR >90 >=60 mL/min/1. 73 m2 Comment: [...] reviewed 2021. Blood 07/31/2024 11:3 7 AM DEVELOPMENT ADVISOR 07/31/2024 11:43 AM DEVELOPMENT ADVISOR us Javi Burrows MD LAB BLOOD ORDERABLES Final Res ult [facility] ([place]) 1 [facility] Department [place] [address] * Differential, auto (07/31/2024 11:37 AM DEVELOPMENT ADVISOR) Neutrophil abs 3.6 1.5 - 6.5 K/cumm Imm gran abs 0.0 0.0 - 0.1 K/cumm [facility] ([place]) Lymphocyte abs 1.1 0.8 - 3.3 K/cumm [facility] ([place]) Monocyte abs 0.7 0.2 - 0.8 K/cumm [...] on 2017. Imm gran pct 0.2 % [facility] ([place]) Comment: Interpretive Data Percent cell count reference ranges are not reported, since discordance with absolute values may lead to misinterpretation of CBC data. Current Interpretive Data was last revised on 2017. Lymphocyte pct 19.2 % [facility] ([place]) Comment: Interpretive Data Percent cell count reference ranges are not reported, since discordance with absolute values may lead to misinterpretation of CBC data. Current Interpretive Data was last revised on 2017. Monocyte pct 11.7 % [facility] ([place]) Comment: Interpretive Data Percent cell count reference ranges are not reported, since discordance with absolute values may lead to misinterpretation of CBC data. Current Interpretive Data was last revised on 2017. Eosinophil pct 6.0 % [facility] ([place]) Comment: Interpretive Data Percent cell count reference ranges are not reported, since discordance with absolute values may lead to misinterpretation of CBC data. Current Interpretive Data was last revised on 2017. Basophil pct 0.3 % [facility] ([place]) Comment: Interpretive Data Percent cell count reference ranges are not reported, since discordance with absolute values may lead to misinterpretation of CBC data. Current Interpretive Data was last revised on 2017. Blood 07/31/2024 11:3 7 AM DEVELOPMENT ADVISOR 07/31/2024 11:43 AM DEVELOPMENT ADVISOR us Javi Burrows MD LAB BLOOD ORDERABLES Final Res ult [facility] ([place]) 1 [facility] Department of Laboratories [place], [place] [id number] * (ABNORMAL) CBC with auto differential (07/31/2024 11:37 AM DEVELOPMENT ADVISOR) WBC 5.8 3.8 - 9.9 K/cumm Hgb 13.8 13.0 - 17.5 g/dL [facility] ([place]) Hct 39.8 38.9 - 50.3 % [facility] ([place]) Plt 213 150 - 400 K/cumm [facility] ([place]) MPV 9.9 9.1 - 12.3 fL [facility] ([place]) RBC 4.25(L) 4.30 - 5.80 M/cumm [facility] ([place]) MCV 93.6 81.3 - 96.4 fL [facility] ([place]) MCH 32.5 27.1 - 33.3 pg [facility] ([place]) MCHC 34.7 32.3 - 35.7 g/dL [facility] ([place]) RDW CV 12.5 11.1 - 14.9 % [facility] ([place]) RDW SD 42.8 35.7 - 48.1 fL [facility] ([place]) NRBC abs 0.00 0.00 - 0.01 K/cumm [facility] ([place]) Blood 07/31/2024 11:3 7 AM DEVELOPMENT ADVISOR 07/31/2024 11:43 AM DEVELOPMENT ADVISOR Javi Burrows MD LAB BLOOD ORDERABLES Final Res ult [facility] ([place]) 1 [facility] [place], [place] [id number] * CEA (07/31/2024 11:37 AM DEVELOPMENT ADVISOR) CEA 4.1 0.1 - 5.0 ng/mL Comment: Interpretive Data The Alpa CEA assay procedure was used. Results from different manufacturers or methods may not be comparable. Serial testing should be performed using the same method. Testing performed by: [facility], [address] [place] [address], [place]., [address] Blood 07/31/2024 11:3 7 AM DEVELOPMENT ADVISOR 07/31/2024 1:13 PM DEVELOPMENT ADVISOR Javi Burrows MD LAB BLOOD ORDERABLES Final Res ult [facility] ([place]) [address] Department [place] [address] * Comprehensive metabolic panel (07/31/2024 11:37 AM DEVELOPMENT ADVISOR) Sodium 139 135 - 145 mmol/L Potassium, [...] classification and Diagnosis of Diabetes Diabetes Care 2021; 46: S19-S40. Current interpretive data was last [...] [facility] ([place]) Blood 07/31/2024 11:3 7 AM DEVELOPMENT ADVISOR 07/31/2024 11:43 AM DEVELOPMENT ADVISOR Javi Burrows MD LAB BLOOD ORDERABLES Final Res ult Performing Organization Address City/State/[facility] Co de Phone Number [facility] ([place]) 1 [facility] [place] [address] * PSA screen (06/13/2023 9:20 AM DEVELOPMENT ADVISOR) PSA-Total 0.99 <=5.40 ng/mL [facility] Comment: Interpretive Data AGE SEX REFERENCE INTERVAL [...] last revised 21. Blood 06/13/2023 9:20 AM DEVELOPMENT ADVISOR 06/13/2023 10:56 AM DEVELOPMENT ADVISOR Debbie Cartwright MICA LAYER LAB BLOOD ORDERABLES Final R esult Performing Organization Address [facility] Co de Phone Number [facility] [place] ([place]) 1 [facility] [place] [address] * Albumin Creatinine Ratio, Urine (06/13/2023 9:20 AM DEVELOPMENT ADVISOR) Albumin Ur 29.6 mg/L [facility] ([place] Comment: Interpretive Data No reference range established. Current interpretive data was last revised 2018. Testing performed by: [facility], [address] [place] [address]., [address] Creatinine Ur 328.9 mg/dL [facility] ([place]) Comment: Interpretive Data No reference range established. Current interpretive data was last revised 2018. Testing performed by: [address] [address] Albumin Creatinine Ratio, Ur 9 1 - 29 mg/g [facility] ([place]) Comment:Testing performed by : [address] [address] Urine 06/13/2023 9:20 AM DEVELOPMENT ADVISOR 06/13/2023 2:02 PM DEVELOPMENT ADVISOR Debbie Cartwright MICA LAYER LAB URINE ORDERABLES Final R esult Performing Organization Address [facility] de Phone Number [facility] ([place]) 1 [facility] [place] [address] * (ABNORMAL) Hemoglobin A1c (06/13/2023 9:20 AM DEVELOPMENT ADVISOR) Hgb A1C 7.1(H) 4.0 - 5.6 % [facility] ([place]) Estimated Average Glucose 157 mg/dL [facility] ([place]) Comment: The ADA recommends reporting an estimated Average Glucose (eAG) with all Hemoglobin A1c results using the equation derived from a study of 507 normal and diabetic adults. Minority populations were underrepresented and children were not included. (Diabetes Care 31:1871-1493, 2007). The eAG is not equivalent to a fasting glucose. Blood 06/13/2023 9:20 AM DEVELOPMENT ADVISOR 06/13/2023 10:56 AM DEVELOPMENT ADVISOR Debbie Cartwright NP LAB BLOOD ORDERABLES Final R [facility] Performing Organization Address City/[facility] Co de Phone Number [facility] ([place]) 1 [facility] [place] [address] * Lipid panel (06/13/2023 9:20 AM DEVELOPMENT ADVISOR) Cholesterol 143 30 - 199 mg/dL [facility] ([place]) Comment: Interpretive Data Ages < or = [...] 2018. Non-HDL Cholesterol 92 mg/dL [facility] ([place]) Comment: Interpretive Data [...] on 2018. Chol/HDL ratio 3 [facility] ([place]) Blood 06/13/2023 9:20 AM DEVELOPMENT ADVISOR 06/13/2023 10:56 AM DEVELOPMENT ADVISOR us Debbie Cartwright NP LAB BLOOD ORDERABLES Final R esult [facility] ([place]) 1 [facility] Department of Laboratories [place], [place] [id number] from Last 3 Months or Most Recently Relevant to Health Maintenance Insurance [facility] MEDICARE SOLUTIONS Care Teams Supervisor Keymodule Assembly Relationship Specialty Start Date End Date Fredis Khan DO PCP - General Internal Medicine 06/21/18 Jarrett Stevens MD Medical Oncologist/Toe Puller Hematology and Oncology 06/17/18
--- OUTSIDE RECORDS SUMMARY | 2024-08-13 07:52 | XMS_ITS ---
Author Organization [facility] Address [address] [place] [address] Phone Care Team Providers Care Data Review Specialist Name Role Phone Jarrett Stevens MD Unavailable [phone] Fredis Khan DO Primary Care Provider [phone] Active Problems Problem Noted Date Diagnosed Date Liver metastasis 06/22/2018 Primary cancer of cecum 06/11/2018 Hypertension 05/06/2012 Chronic hepatitis C virus infection 05/06/2012 Diabetes mellitus 05/06/2012 Current smoker 07/21/2010 Current Treatment and Therapy Plans No current plan information found. Past Treatment and Therapy Plans Oncology Chemotherapy Treatment Plan Name Start Date Discontinue Date Treatment Medications Discontinue Reason Plan Provider Cycles [id number]+Amanda: (Fluorouracil / Leucovorin / OXALIplatin / Bevacizumab) 14 Day Cycles - Colon/Rectum 9 07/02/2018 bevacizumab (AVASTIN)fluor ouracil (ADRUCIL)leuco vorinoxaliplat in (ELOXATIN) Financial Jarrett Stevens MD Treatment not started
[2024-08-13 08:15] LABS: Estimated Glomerular Filt Rate > 60
== END 2024-08-13 07:48 | disposition home or self-care (01) ==
PROVIDERS: PCP Internal Medicine; Visit Provider Internal Medicine Hematology & Oncology
DX: C18.9 Malignant neoplasm of colon, unspecified (principal); C78.7 Secondary malignant neoplasm of liver and intrahepatic bile duct; N20.2 Calculus of kidney with calculus of ureter
CPT/HCPCS: 71260; 74177; Q9967